=== PATIENT | female | born 1950 | race Caucasian/White ===

== ENCOUNTER 2018-12-20 14:32 | Inpatient (IN) | payer MEDICARE, MEDICAID ==
--- NOTE | 2018-12-20 16:10 | EDM.PDOC ---
ED HPI GENERAL MEDICAL PROBLEM - General Chief Complaint: Respiratory Problem Stated Complaint: SOB Bilateral Chest Pain Score (Numeric/FACES): 10 - Related Data Allergies Allergy/AdvReac Type Severity Reaction Status Date / Time No Known Allergies Allergy Verified 12/20/18 14:44 Home Meds: Home Meds ALPRAZolam [Alprazolam ODT] 0.5 mg PO Q8H PRN 12/20/18 [History] Albuterol Sulfate [Proair Hfa] 2 puff INH Q4H PRN 12/20/18 [History] Fluticasone/Salmeterol [Advair 250-50] 2 puff INH BID 12/20/18 [History] Hydrocodone/Acetaminophen [[place] 5-325 Tablet] 1 tab PO Q6H PRN 12/20/18 [ History] Ondansetron [Zofran] 8 mg PO Q6HR PRN 12/20/18 [History] Prochlorperazine [Compazine] 10 mg PO DAILY PRN 12/20/18 [History] Simvastatin [Zocor] 40 mg PO BEDTIME 12/20/18 [History] Sulfamethoxazole/Trimethoprim [Bactrim 400-80 MG] 1 tab PO BID 12/20/18 [History ] rOPINIRole [Requip] 1 mg PO DAILY 12/20/18 [History] rOPINIRole [Requip] 2 mg PO BEDTIME 12/20/18 [History] traMADol [Ultram] 50 mg PO DAILY PRN 12/20/18 [History] Course - Vital Signs Last Recorded V/S: Last Vital Signs Temp 96.8 F 12/20/18 14:40 Pulse 118 H 12/20/18 14:40 Resp 19 12/20/18 14:40 BP 119/78 12/20/18 14:40 Pulse Ox 94 L 12/20/18 14:40 Departure - Discharge Information Referrals: Evelyne Chapman PA-C [Primary Care Provider] -
[2018-12-20] MEDS ORDERED: Sodium Chloride 0.9% 1,000 ML IV ONE (16:27)
[2018-12-20] MEDS ORDERED: Albuterol 0.083% 2.5 MG/3 ML Neb Soln NEB ONE (16:27)
[2018-12-20] MEDS ORDERED: HYDROmorphone 0.5 MG/0.5 ML Syringe IVPUSH ONE (16:27)
--- NOTE | 2018-12-20 16:58 | EDM.PDOC ---
ED HPI GENERAL MEDICAL PROBLEM - General Chief Complaint: Respiratory Problem Stated Complaint: SOB Time Seen by Provider: 12/20/18 15:51 Source of Information: Reports: Patient History Limitations: Reports: No Limitations - History of Present Illness INITIAL COMMENTS - FREE TEXT/NARRATIVE: Patient is a 68-year-old female who presents ED complaining of right-sided chest pain with shortness of breath and cough. This started approximately one week ago and has progressively gotten worse. She's had increasing shortness of breath since onset with productive cough clear phlegm and short of breath laying flat. Patient has a history of lung cancer and had a left lung completely resected. She has a spot that has shown up on PET scan on the right lung and she's been undergoing radiation therapy and also chemotherapy. They had to stop the chemotherapy because her blood work showed that she was severely neutropenic. They continued with the radiation therapy to which they stopped 1 week ago. She completed a 7-1/2 week program. She was diagnosed with lung infection by Dr. Mohr and placed on bactrim recently and has completed 6/8 day course. She is denies any increased swelling to her lower extremities. No pain noted to the posterior aspect of the legs. She has no history of DVT or PE. Of note no chest x-ray was obtained by Dr. Mohr with diagnosis of lung infection. There has been no documented fever. She denies any hemoptysis. No substernal chest discomfort. No abdominal pain. No nausea or vomiting. No dysuria. No increase swelling to lower extremities. No rash present. No recent fall or activity that may have caused the pain. Bilateral Chest Pain Score (Numeric/FACES): 10 - Related Data Allergies Allergy/AdvReac Type Severity Reaction Status Date / Time No Known Allergies Allergy Verified 12/20/18 14:44 Home Meds: Home Meds ALPRAZolam [Alprazolam ODT] 0.5 mg PO Q8H PRN 12/20/18 [History] Albuterol Sulfate [Proair Hfa] 2 puff INH Q4H PRN 12/20/18 [History] Fluticasone/Salmeterol [Advair 250-50] 2 puff INH BID 12/20/18 [History] Hydrocodone/Acetaminophen [Reva 5-325 Tablet] 1 tab PO Q6H PRN 12/20/18 [ History] Ondansetron [Zofran] 8 mg PO Q6HR PRN 12/20/18 [History] Prochlorperazine [Compazine] 10 mg PO DAILY PRN 12/20/18 [History] Simvastatin [Zocor] 40 mg PO BEDTIME 12/20/18 [History] Sulfamethoxazole/Trimethoprim [Bactrim 400-80 MG] 1 tab PO BID 12/20/18 [History ] rOPINIRole [Requip] 1 mg PO DAILY 12/20/18 [History] rOPINIRole [Requip] 2 mg PO BEDTIME 12/20/18 [History] traMADol [Ultram] 50 mg PO DAILY PRN 12/20/18 [History] ED ROS GENERAL - Review of Systems Review Of Systems: ROS reveals no pertinent complaints other than HPI. ED EXAM, GENERAL - Physical Exam Exam: See Below Exam Limited By: No Limitations General Appearance: Alert, WD/WN, No Apparent Distress Eye Exam: Bilateral Eye: Normal Inspection Ears: Hearing Grossly Normal Nose: Normal Inspection Throat/Mouth: Normal Voice, No Airway Compromise Head: Atraumatic, Normocephalic Neck: Normal Inspection, Supple Respiratory/Chest: No Respiratory Distress, No Accessory Muscle Use, Chest Non- Tender, Decreased Breath Sounds (Left lung field. Vocalized lung sounds on the left diminished since patient has resected lung.), Rhonchi (Right lung field with intermittent expiratory wheezing), Wheezing. No: Accessory Muscle Use Cardiovascular: Normal Peripheral Pulses, Tachycardia, Extra Beats Peripheral Pulses: 2+: Radial (L), Radial (R) GI/Abdominal: Normal Bowel Sounds, Soft, Non-Tender, No Organomegaly, No Distention Back Exam: Normal Inspection Extremities: Normal Inspection, Normal Range of Motion, Non-Tender, No Pedal Edema Neurological: Alert, Oriented, CN II-XII Intact, Normal Cognition, No Motor/ Sensory Deficits Psychiatric: Normal Affect, Normal Mood Skin Exam: Warm, Dry, Intact, Normal Color, No Rash Course - Vital Signs Last Recorded V/S: Last Vital Signs Temp 96.8 F 12/20/18 14:40 Pulse 118 H 12/20/18 14:40 Resp 19 12/20/18 14:40 BP 119/78 12/20/18 14:40 Pulse Ox 97 12/20/18 16:46 - Orders/Labs/Meds Orders: Active Orders 24 hr Category Date Time Status Patient Status [ADT] Routine ADT 12/20/18 22:01 Active EKG Documentation Completion [RC] STAT Care 12/20/18 16:27 Active Peripheral IV Care [RC] . DIRECTED Care 12/20/18 16:27 Active RT Aerosol Therapy [RC] ASDIRECTED Care 12/20/18 16:27 Active Chest 2V [CR] Stat Exams 12/20/18 16:27 Taken CULTURE BLOOD [BC] Stat Lab 12/20/18 17:12 Received CULTURE BLOOD [BC] Stat Lab 12/20/18 17:41 Received MYCOPLASMA PNEUMONIAE, IGG AB [REF] Stat Lab 12/20/18 16:43 Received STREP PNEUMONIAE ANTIGEN [MREF] Stat Lab 12/20/18 18:35 Received Sodium Chloride 0.9% [Saline Flush] Med 12/20/18 16:27 Active 10 ml FLUSH ASDIRECTED PRN rOPINIRole [Requip] Med 12/21/18 21:30 Once 1 mg PO ONETIME ONE Blood Culture x2 Reflex Set [OM.PC] Stat Oth 12/20/18 16:30 Ordered Peripheral IV Insertion Adult [OM.PC] Routine Oth 12/20/18 16:27 Ordered Medication Orders Acetaminophen (Tylenol) 650 mg PO Q4H PRN PRN Reason: Pain (Mild 1-3)/fever Hydrocodone Bitart/Acetaminophen (Reva 325-5 Mg) 1 tab PO Q6H PRN PRN Reason: Pain Albuterol (Proventil Hfa) 0 gm INH Q4H PRN PRN Reason: sob Albuterol/Ipratropium (Duoneb 3.0-0.5 Mg/3 Ml) 3 ml NEB Q4H PRN PRN Reason: Shortness Of Breath/wheezing Alprazolam (Xanax) 0.5 mg PO Q8H PRN PRN Reason: Anxiety Bisacodyl (Dulcolax) 5 mg PO DAILY PRN PRN Reason: Constipation Docusate Sodium (Colace) 100 mg PO BID PRN PRN Reason: Constipation Hydralazine HCl (Apresoline) 20 mg IVPUSH Q4H PRN PRN Reason: Hypertension Hydromorphone HCl (Dilaudid) 0.25 mg IVPUSH Q2H PRN PRN Reason: Pain (severe 7-10) Meropenem 1 gm/ Sodium (Chloride) 100 mls @ 200 mls/hr IV Q8H [facility] Vancomycin HCl 500 mg/ Sodium (Chloride) 250 mls @ 166.667 mls/hr IV Q12H [facility] Promethazine HCl 6.25 mg/ (Sodium Chloride) 50.25 mls @ 100 mls/hr IV Q6H PRN PRN Reason: Nausea/Vomiting Sodium Chloride (Normal Saline) 1,000 mls @ 100 mls/hr IV ASDIRECTED [facility] Lorazepam (Ativan) 1 mg IV Q6H PRN PRN Reason: Anxiety Metoprolol Tartrate (Lopressor) 5 mg IVPUSH Q4H PRN PRN Reason: Tachycardia Mometasone Furoate/Formoterol Fumar (Dulera 200-5 Mcg) 2 puff IH BIDRT [facility] Non-Formulary Medication (Ropinirole) 1 mg PO DAILY [facility] Ondansetron HCl (Zofran Odt) 8 mg PO Q6HR PRN PRN Reason: Nausea Ondansetron HCl (Zofran) 4 mg IV Q6H PRN PRN Reason: Nausea/Vomiting Pantoprazole Sodium (Protonix Iv) 40 mg IV Q12HR [facility] Polyethylene Glycol (Miralax) 17 gm PO DAILY PRN PRN Reason: Constipation Prochlorperazine Maleate (Compazine) 10 mg PO DAILY PRN PRN Reason: Nausea Ropinirole HCl (Requip) 1 mg PO ONETIME ONE Stop: 12/21/18 21:31 Last Admin: 12/20/18 21:37 Dose: 1 mg Ropinirole HCl (Requip) 2 mg PO BEDTIME [facility] Senna/Docusate Sodium (Senna Plus) 1 tab PO BID PRN PRN Reason: Constipation Simvastatin (Zocor) 40 mg PO BEDTIME [facility] Sodium Chloride (Saline Flush) 10 ml FLUSH ASDIRECTED PRN PRN Reason: Keep Vein Open Last Admin: 12/20/18 20:09 Dose: 10 ml Admin: 12/20/18 17:03 Dose: 10 ml Temazepam (Restoril) 15 mg PO BEDTIME PRN PRN Reason: Sleep Tramadol HCl (Ultram) 50 mg PO DAILY PRN PRN Reason: Pain Vancomycin HCl (Pharmacy To Dose - Vancomycin) 1 dose .XX ASDIRECTED [facility] Labs: Laboratory Tests 12/20/18 12/20/18 12/20/18 Range/Units 16:43 16:43 16:43 WBC 0.75 L* (3.98-10.04) K/mm3 RBC 2.89 L (3.98-5.22) M/mm3 Hgb 8.7 L (11.2-15.7) gm/dl Hct 27.1 L (34.1-44.9) % MCV 93.8 (79.4-94.8) fl MCH 30.1 (25.6-32.2) pg MCHC 32.1 L (32.2-35.5) g/dl RDW Std Deviation 70.3 H (36.4-46.3) fL Plt Count 139 L (182-369) K/mm3 MPV 10.3 (9.4-12.3) fl Neutrophils % (Manual) 34 L (40-60) % Band Neutrophils % 0 (0-10) % Lymphocytes % (Manual) 46 H (20-40) % Atypical Lymphs % 0 % Monocytes % (Manual) 18 H (2-10) % Eosinophils % (Manual) 2 (0.7-5.8) % Basophils % (Manual) 0 L (0.1-1.2) Toxic Granulation Few Platelet Estimate Decreased Plt Morphology Comment See note Hypochromasia Few Basophilic Stippling Occasional Anisocytosis 2+ moder Macrocytosis 1+ slight Ovalocytes 1+ slight RBC Morph Comment Not Reportable PT (9.7-12.0) SECONDS INR Sodium 134 L (136-145) mEq/L Potassium 4.1 (3.5-5.1) mEq/L Chloride 100 (98-107) mEq/L Carbon Dioxide 24 (21-32) mEq/L Anion Gap 14.1 (5-15) BUN 15 (7-18) mg/dL Creatinine 1.0 (0.55-1.02) mg/dL Est Cr Clr Drug Dosing 49.00 mL/min Estimated GFR (MDRD) 55 (>60) mL/min BUN/Creatinine Ratio 15.0 (14-18) Glucose 90 (80-115) mg/dL Lactic Acid (0.4-2.0) mmol/L Calcium 9.5 (8.5-10.1) mg/dL Total Bilirubin 0.5 (0.2-1.0) mg/dL AST 12 L (15-37) U/L ALT 15 (14-59) U/L Alkaline Phosphatase 132 H (46-116) U/L Troponin I < 0.017 (0.00-0.056) ng/mL C-Reactive Protein 1.4 H* (<1.0) mg/dL NT-Pro-B Natriuret Pep 116 (0-125) pg/mL Total Protein 7.8 (6.4-8.2) g/dl Albumin 4.3 (3.4-5.0) g/dl Globulin 3.5 gm/dL Albumin/Globulin Ratio 1.2 (1-2) Urine Color (Yellow) Urine Appearance (Clear) Urine pH (5.0-8.0) Ur Specific [place] (1.005-1.030) Urine Protein (Negative) Urine Glucose (UA) (Negative) Urine Ketones (Negative) Urine Occult Blood (Negative) Urine Nitrite (Negative) Urine Bilirubin (Negative) Urine Urobilinogen (0.2-1.0) Ur Leukocyte Esterase (Negative) Urine RBC (0-5) /hpf Urine WBC (0-5) /hpf Ur Squamous Epith Cells (0-5) /hpf Urine Bacteria (FEW) /hpf Urine Mucus (FEW) /hpf 12/20/18 12/20/18 12/20/18 Range/Units 16:43 17:12 18:35 WBC (3.98-10.04) K/mm3 RBC (3.98-5.22) M/mm3 Hgb (11.2-15.7) gm/dl Hct (34.1-44.9) % MCV (79.4-94.8) fl MCH (25.6-32.2) pg MCHC (32.2-35.5) g/dl RDW Std Deviation (36.4-46.3) fL Plt Count (182-369) K/mm3 MPV (9.4-12.3) fl Neutrophils % (Manual) (40-60) % Band Neutrophils % (0-10) % Lymphocytes % (Manual) (20-40) % Atypical Lymphs % % Monocytes % (Manual) (2-10) % Eosinophils % (Manual) (0.7-5.8) % Basophils % (Manual) (0.1-1.2) Toxic Granulation Platelet Estimate Plt Morphology Comment Hypochromasia Basophilic Stippling Anisocytosis Macrocytosis Ovalocytes RBC Morph Comment PT 10.9 (9.7-12.0) SECONDS INR 1.00 Sodium (136-145) mEq/L Potassium (3.5-5.1) mEq/L Chloride (98-107) mEq/L Carbon Dioxide (21-32) mEq/L Anion Gap (5-15) BUN (7-18) mg/dL Creatinine (0.55-1.02) mg/dL Est Cr Clr Drug Dosing mL/min Estimated GFR (MDRD) (>60) mL/min BUN/Creatinine Ratio (14-18) Glucose (80-115) mg/dL Lactic Acid 0.7 (0.4-2.0) mmol/L Calcium (8.5-10.1) mg/dL Total Bilirubin (0.2-1.0) mg/dL AST (15-37) U/L ALT (14-59) U/L Alkaline Phosphatase (46-116) U/L Troponin I (0.00-0.056) ng/mL C-Reactive Protein (<1.0) mg/dL NT-Pro-B Natriuret Pep (0-125) pg/mL Total Protein (6.4-8.2) g/dl Albumin (3.4-5.0) g/dl Globulin gm/dL Albumin/Globulin Ratio (1-2) Urine Color Yellow (Yellow) Urine Appearance Slt cloudy H (Clear) Urine pH 5.5 (5.0-8.0) Ur Specific [place] > or = 1.030 (1.005-1.030) Urine Protein 2+ H (Negative) Urine Glucose (UA) Negative (Negative) Urine Ketones 3+ H (Negative) Urine Occult Blood 1+ H (Negative) Urine Nitrite Negative (Negative) Urine Bilirubin 2+ H (Negative) Urine Urobilinogen 1.0 (0.2-1.0) Ur Leukocyte Esterase Negative (Negative) Urine RBC 0-5 (0-5) /hpf Urine WBC 0-5 (0-5) /hpf Ur Squamous Epith Cells 10-20 H (0-5) /hpf Urine Bacteria Moderate H (FEW) /hpf Urine Mucus Few (FEW) /hpf Meds: Medications Generic Name Dose Route Start Last Admin Trade Name Freq PRN Reason Stop Dose Admin Acetaminophen 650 mg 12/20/18 22:26 Tylenol PO Q4H PRN Pain (Mild 1-3)/fever Hydrocodone Bitart/Acetaminophen 1 tab 12/20/18 22:41 Reva 325-5 Mg PO Q6H PRN Pain Albuterol 0 gm 12/20/18 22:24 Proventil Hfa INH Q4H PRN sob Albuterol/Ipratropium 3 ml 12/20/18 22:26 Duoneb 3.0-0.5 Mg/3 Ml NEB Q4H PRN Shortness Of Breath/wheezing Alprazolam 0.5 mg 12/20/18 22:24 Xanax PO Q8H PRN Anxiety Bisacodyl 5 mg 12/20/18 22:26 Dulcolax PO DAILY PRN Constipation Docusate Sodium 100 mg 12/20/18 22:26 Colace PO BID PRN Constipation Hydralazine HCl 20 mg 12/20/18 22:30 Apresoline IVPUSH Q4H PRN Hypertension Hydromorphone HCl 0.25 mg 12/20/18 22:26 Dilaudid IVPUSH Q2H PRN Pain (severe 7-10) Meropenem 1 gm/ Sodium 100 mls @ 200 mls/hr 12/20/18 23:00 Chloride IV Q8H [facility] Vancomycin HCl 500 mg/ Sodium 250 mls @ 166.667 mls/hr 12/20/18 22:30 Chloride IV Q12H [facility] Promethazine HCl 6.25 mg/ 50.25 mls @ 100 mls/hr 12/20/18 22:26 Sodium Chloride IV Q6H PRN Nausea/Vomiting Sodium Chloride 1,000 mls @ 100 mls/hr 12/20/18 22:30 Normal Saline IV ASDIRECTED [facility] Lorazepam 1 mg 12/20/18 22:26 Ativan IV Q6H PRN Anxiety Metoprolol Tartrate 5 mg 12/20/18 22:30 Lopressor IVPUSH Q4H PRN Tachycardia Mometasone Furoate/Formoterol Fumar 2 puff 12/20/18 22:30 Dulera 200-5 Mcg IH BIDRT [facility] Non-Formulary Medication 1 mg 12/21/18 09:00 Ropinirole PO DAILY [facility] Ondansetron HCl 8 mg 12/20/18 22:24 Zofran Odt PO Q6HR PRN Nausea Ondansetron HCl 4 mg 12/20/18 22:26 Zofran IV Q6H PRN Nausea/Vomiting Pantoprazole Sodium 40 mg 12/21/18 09:00 Protonix Iv IV Q12HR [facility] Polyethylene Glycol 17 gm 12/20/18 22:26 Miralax PO DAILY PRN Constipation Prochlorperazine Maleate 10 mg 12/20/18 22:24 Compazine PO DAILY PRN Nausea Ropinirole HCl 1 mg 12/21/18 21:30 12/20/18 21:37 Requip PO 12/21/18 21:31 1 mg ONETIME ONE Administration Ropinirole HCl 2 mg 12/21/18 21:00 Requip PO BEDTIME [facility] Senna/Docusate Sodium 1 tab 12/20/18 22:26 Senna Plus PO BID PRN Constipation Simvastatin 40 mg 12/21/18 21:00 Zocor PO BEDTIME [facility] Sodium Chloride 10 ml 12/20/18 16:27 12/20/18 20:09 Saline Flush FLUSH 10 ml ASDIRECTED PRN Administration Keep Vein Open Temazepam 15 mg 12/20/18 22:26 Restoril PO BEDTIME PRN Sleep Tramadol HCl 50 mg 12/20/18 22:24 Ultram PO DAILY PRN Pain Vancomycin HCl 1 dose 12/20/18 22:30 Pharmacy To Dose - Vancomycin .XX ASDIRECTED [facility] Discontinued Medications Generic Name Dose Route Start Last Admin Trade Name Freq PRN Reason Stop Dose Admin Hydrocodone Bitart/Acetaminophen 1 tab 12/20/18 21:29 12/20/18 21:37 Reva 325-5 Mg PO 12/20/18 21:30 1 tab ONETIME ONE Administration Albuterol 2.5 mg 12/20/18 16:27 12/20/18 16:46 Proventil Neb Soln NEB 12/20/18 16:28 2.5 mg ONETIME ONE Administration Hydromorphone HCl 0.25 mg 12/20/18 16:27 12/20/18 17:02 Dilaudid IVPUSH 12/20/18 16:28 0.25 mg ONETIME ONE Administration Sodium Chloride 1,000 mls @ 250 mls/hr 12/20/18 16:27 12/20/18 17:02 Normal Saline IV 12/20/18 20:26 250 mls/hr ONETIME ONE Administration Sodium Chloride 100 mls @ 4 mls/sec 12/20/18 19:27 12/20/18 20:09 Normal Saline IV 12/20/18 19:28 4 mls/sec ONETIME ONE Administration Levofloxacin/Dextrose 750 mg/ 150 mls @ 100 mls/hr 12/20/18 20:27 12/20/18 21 :02 Premix IV 12/20/18 21:56 100 mls/hr ONETIME ONE Administration Iopamidol 100 ml 12/20/18 19:27 12/20/18 20:09 Isovue-370 (76%) IVPUSH 12/20/18 19:28 100 ml ONETIME ONE Administration Ropinirole HCl 1 mg 12/20/18 19:04 12/20/18 19:15 Requip PO 12/20/18 19:05 1 mg ONETIME ONE Administration - Re-Assessments/Exams Free Text/Narrative Re-Assessment/Exam: IV established with normal saline and Dilaudid 0.25 mg IVP. I will also ordered albuterol neb treatment 2.5 mg 1 time. Initial labs and studies include: CBC, chem 14, CRP, blood cultures 2, lactic acid, inr, mycoplasma, strep pneumonia,pro bnp, troponin, and ua. Mycoplasma and strep pneumonia ordered. EKG ordered as well. EKG: Sinus tachycardia with T-wave inversion in aVL. CXR: Left-sided lobectomy with no concerns for increased pulmonary vascular sedation and/or pneumonia to the right lung simpson. Labs reviewed: White blood cell count 0.75, hemoglobin 8.7, the count 139, neutrophil percentage 34, bands 0, lymphocyte percentage is 46, monocyte percentage is 18, sodium 134, potassium 4.1, AG 14.1, creatinine 1.0, glucose 90 , lactic acid 0.7, LFTs within normal limits, troponin normal, CRP 1.4, and BNP 116. Patient placed on precautions due to severe neutropenia. Ordered CTA of the chest to rule out PE. . 12/20/18 19:47 Patient has just been taken back to CT suite. 12/20/18 20:32 CT angio the chest impression: Previous left pneumonectomy. No findings of pulmonary embolus. Patchy increased density within the right upper lung most likely representing mild area pneumonia. Other findings which are nonacute as described above. [id number] Discussed patient with Dr. Cool and he has agreed to admit the patient if she want to. I have spoken with the patient and she wishes to be admitted. Ordered Levaquin 750 mg IV. Departure - Departure Time of Disposition: 20:33 Disposition: Admitted As Inpatient 64 Condition: Good Clinical Impression: Pneumonia Qualifiers: Pneumonia type: due to unspecified organism Laterality: right Lung location: upper lobe of lung Qualified Code(s): J18.1 - Lobar pneumonia, unspecified organism - Discharge Information - My Orders Last 24 Hours: My Active Orders 12/20/18 16:27 EKG Documentation Completion [RC] STAT Peripheral IV Care [RC] . DIRECTED RT Aerosol Therapy [RC] ASDIRECTED Chest 2V [CR] Stat Sodium Chloride 0.9% [Saline Flush] 10 ml FLUSH ASDIRECTED PRN Peripheral IV Insertion Adult [OM.PC] Routine 12/20/18 16:30 Blood Culture x2 Reflex Set [OM.PC] Stat 12/20/18 16:43 MYCOPLASMA PNEUMONIAE, IGG AB [REF] Stat 12/20/18 17:12 CULTURE BLOOD [BC] Stat 12/20/18 17:41 CULTURE BLOOD [BC] Stat 12/20/18 18:35 STREP PNEUMONIAE ANTIGEN [MREF] Stat 12/20/18 22:01 Patient Status [ADT] Routine 12/21/18 21:30 rOPINIRole [Requip] 1 mg PO ONETIME ONE - Assessment/Plan Last 24 Hours: My Active Orders 12/20/18 16:27 EKG Documentation Completion [RC] STAT Peripheral IV Care [RC] . DIRECTED RT Aerosol Therapy [RC] ASDIRECTED Chest 2V [CR] Stat Sodium Chloride 0.9% [Saline Flush] 10 ml FLUSH ASDIRECTED PRN Peripheral IV Insertion Adult [OM.PC] Routine 12/20/18 16:30 Blood Culture x2 Reflex Set [OM.PC] Stat 12/20/18 16:43 MYCOPLASMA PNEUMONIAE, IGG AB [REF] Stat 12/20/18 17:12 CULTURE BLOOD [BC] Stat 12/20/18 17:41 CULTURE BLOOD [BC] Stat 12/20/18 18:35 STREP PNEUMONIAE ANTIGEN [MREF] Stat 12/20/18 22:01 Patient Status [ADT] Routine 12/21/18 21:30 rOPINIRole [Requip] 1 mg PO ONETIME ONE
[2018-12-20] MEDS: Sodium Chloride 0.9% 10 ML Syringe FLUSH PRN ×2 (17:03→20:09)
[2018-12-20] MEDS ORDERED: rOPINIRole 1 MG Tab PO ONE (19:04)
[2018-12-20] MEDS ORDERED: Iopamidol 755 Mg/ML 100 ML Bottle IVPUSH ONE (19:27)
[2018-12-20] MEDS ORDERED: Sodium Chloride 0.9% 100 ML IV ONE (19:27)
--- NOTE | 2018-12-20 20:24 | CT ---
CT chest Technique: Multiple axial sections through the chest were obtained. Intravenous contrast was utilized. Study has been performed as a pulmonary angiogram protocol. Comparison: No prior chest imaging is available. Findings: Pulmonary arteries are well opacified. No filling defects are seen to indicate pulmonary embolism. Previous left-sided pneumonectomy is noted. No discrete mediastinal or hilar adenopathy is seen. Heart is not enlarged. No pericardial effusion is seen. Small area of focal fat is seen within the right lung base most likely representing focal fatty eventration of the right hemidiaphragm. Lung window setting shows slight increased density within the right upper lung possibly due to early area of pneumonia. Right lung is otherwise clear. Visualized portions of the upper abdominal structures shows gallstones. Bone window settings were reviewed which shows mild diffuse degenerative change within the spine. Several old healed left-sided rib fractures are seen. Single old healed right-sided rib fracture is noted. Impression: 1. Previous left pneumonectomy. 2. No findings of pulmonary embolism. 3. Patchy increased density within the right upper lung most likely representing mild area of pneumonia. 4. Other findings which are nonacute as described above. Diagnostic code #3
[2018-12-20] MEDS ORDERED: Levofloxacin/Dextrose 5%-Water 750 MG in Premix Bag 1 BAG IV ONE (20:27)
[2018-12-20] MEDS ORDERED: Acetaminophen/HYDROcodone 325-5 MG Tab PO ONE (21:29)
[2018-12-20] MEDS ORDERED: Prochlorperazine 5 MG Tab PO PRN (22:24)
[2018-12-20] MEDS ORDERED: ALPRAZolam 0.5 MG Tab PO PRN (22:24)
[2018-12-20] MEDS ORDERED: traMADol 50 MG Tab PO PRN (22:24)
[2018-12-20] MEDS ORDERED: Albuterol 6.7 GM Inhaler INH PRN (22:24)
[2018-12-20] MEDS ORDERED: Ondansetron 4 MG Tab.DIS PO PRN (22:24)
[2018-12-20] MEDS ORDERED: Acetaminophen 325 MG Tab PO PRN (22:26)
[2018-12-20] MEDS ORDERED: Polyethylene Glycol 3350 Powder 17 GM Packet PO PRN (22:26)
[2018-12-20] MEDS ORDERED: LORazepam 2 MG/ML SDV IV PRN (22:26)
[2018-12-20] MEDS ORDERED: Albuterol/Ipratropium 3.0-0.5 MG/3 ML Neb Soln NEB PRN (22:26)
[2018-12-20] MEDS ORDERED: Temazepam 15 MG Cap PO PRN (22:26)
[2018-12-20] MEDS ORDERED: Docusate Sodium 100 MG Cap PO PRN (22:26)
[2018-12-20] MEDS ORDERED: Promethazine 6.25 MG in Sodium Chloride 0.9% 50 ML IV PRN (22:26)
[2018-12-20] MEDS ORDERED: HYDROmorphone 0.5 MG/0.5 ML Syringe IVPUSH PRN (22:26)
[2018-12-20] MEDS ORDERED: Metoprolol Tartrate 5 MG/5 ML SDV IVPUSH PRN (22:30)
[2018-12-20] MEDS ORDERED: hydrALAZINE 20 MG/ML SDV IVPUSH PRN (22:30)
[2018-12-20] MEDS ORDERED: Meropenem 1 GM in Sodium Chloride 0.9% 100 ML IV SCH (23:00)
[2018-12-20] MEDS: Formoterol/Mometasone 200-5 MCG 8.8 GM Inhaler IH SCH (23:19)
[2018-12-20] MEDS: Sodium Chloride 0.9% 1,000 ML IV SCH (23:42)
[2018-12-20] MEDS: MEROPENEM IV SCH (23:43)
[2018-12-21] MEDS ORDERED: MEROPENEM IV SCH
[2018-12-21] MEDS ORDERED: rOPINIRole 1 MG Tab PO ONE ×2 (00:30→21:30)
[2018-12-21] MEDS: Ondansetron 4 MG/2 ML SDV IV PRN ×2 (00:40→10:06)
[2018-12-21] MEDS: rOPINIRole 1 MG Tab PO SCH ×6 (04:25→22:09)
[2018-12-21] MEDS: Formoterol/Mometasone 200-5 MCG 8.8 GM Inhaler IH SCH ×2 (05:47→20:23)
[2018-12-21] MEDS ORDERED: Magnesium Sulfate/Water 4 GM in Premix Bag 1 BAG IV ONE (07:35)
[2018-12-21] MEDS: MEROPENEM IV SCH (07:58)
--- NOTE | 2018-12-21 08:09 | PCM.HP.2 ---
H&P History of Present Illness - General Date of Service: 12/21/18 Admit Problem/Dx: Admission Diagnosis/Problem Admission Diagnosis/Problem Pneumonia Source of Information: Patient, Old Records, Provider, RN Notes Reviewed History Limitations: Reports: No Limitations - History of Present Illness Initial Comments - Free Text/Narative: This is a 68 yo elderly white female with past medical hx/o LD, Chronic Pain, RLS, Anxiety/Depression, Lung CA S/p Resection and Obesity Class I who presented to ED with complaints of worsening right sided chest pain associated with shortness of breath and wet clear cough that started about a week ago. She carries a hx/o Lung caner s/p left lung resection. She completed her chemotherapy about a month and just recently done with her 8 weeks treatment of radiation therapy. She was initially diagnosed with pneumonia by her cancer doctor in [place]. She was put on oral Bactrim but this did not seem to improve her symptoms. Her initial work up in ED showed a CBC remarkable for WBC of 0.75, RBC of 2.89, Hgb of 8.7, Hct of 27.1, MCHC of 32.1, RDW of 70.3, Platelet of 139, Neutrophils of 34%, Lymphocytes of 46% and Monocytes of 18%. Her Chemistry was significant for AST of 12, Alk Phos of 132, and CRP of 1.4. Her UA was not suggestive of UTI. However her Chest CT scan report read as no findings of PE, previous left pneumectomy, and patchy increased density within the right upper lung. Patient was admitted overnight for CAP vs Post Obstructive Pneumonia. Bilateral Chest Pain Score (Numeric/FACES): 10 Right Chest Pain Score (Numeric/FACES): 7 - Related Data Allergies/Adverse Reactions: Allergies Allergy/AdvReac Type Severity Reaction Status Date / Time No Known Allergies Allergy Verified 12/20/18 14:44 Home Medications: Home Meds ALPRAZolam [Alprazolam ODT] 0.5 mg PO DAILY PRN 12/20/18 [History] Albuterol Sulfate [Proair Hfa] 2 puff INH Q4H PRN 12/20/18 [History] Fluticasone/Salmeterol [Advair 250-50] 2 puff INH BID 12/20/18 [History] Hydrocodone/Acetaminophen [[place] 5-325 Tablet] 1 - 2 tab PO Q6H PRN 12/20/18 [ History] Ondansetron [Zofran] 8 mg PO TID PRN 12/20/18 [History] Prochlorperazine [Compazine] 10 mg PO TID PRN 12/20/18 [History] Simvastatin [Zocor] 40 mg PO BEDTIME 12/20/18 [History] Sulfamethoxazole/Trimethoprim [Bactrim 400-80 MG] 1 tab PO BID 12/20/18 [History ] rOPINIRole [Requip] 1 mg PO TID 12/20/18 [History] rOPINIRole [Requip] 3 mg PO BEDTIME 12/20/18 [History] traMADol [Ultram] 50 mg PO DAILY PRN 12/20/18 [History] Past Medical History HEENT History: Reports: Impaired Vision Cardiovascular History: Reports: High Cholesterol Respiratory History: Reports: Other (See Below) Other Respiratory History: lung [place] [employer] History: Reports: Ectopic Other OB/BYN History: Hysrectomy Psychiatric History: Reports: Depression Endocrine/Metabolic History: Reports: Obesity/BMI 30+ Hematologic History: Reports: Anemia Oncologic (Cancer) History: Reports: Lung - Past Surgical History Oncologic Surgical History: Reports: Lobectomy, Other (See Below) Other Oncologic Surgeries/Procedures: Lobectomy of left lung Social & Family History - Family History Family Medical History: Noncontributory - Tobacco Use Smoking Status *Q: Former Smoker Used Tobacco, but Quit: Yes Month/Year Tobacco Last Used: 2018 Tobacco Use Comment: pt uses "clean cig" ecigarette - Caffeine Use Caffeine Use: Reports: Coffee, Soda - Recreational Drug Use Recreational Drug Type: Reports: Marijuana/Hashish Other Recreational Drug Type: "twice a week" Recreational Drug Last Use: last week H&P Review of Systems - Review of Systems: Review Of Systems: See Below General: Reports: Malaise, Weakness, Fatigue. Denies: Fever, Chills HEENT: Reports: No Symptoms Pulmonary: Reports: Shortness of Breath, Cough, Sputum (clear), Other (rib pain) . Denies: Wheezing, Pleuritic Chest Pain Cardiovascular: Denies: Chest Pain Gastrointestinal: Reports: Constipation, Decreased Appetite, Other (dry heaves) . Denies: Abdominal Pain, Vomiting Genitourinary: Reports: No Symptoms Musculoskeletal: Reports: Muscle Pain Skin: Denies: Cyanosis, Mottled, Diaphoresis, Bruising, Erythema, Wound Psychiatric: Denies: Depression, Mood Lability, Anxiety, Agitation, Cravings, Hallucinations, Suicidal Ideation, Homicidal Ideation Neurological: Reports: Weakness, Gait Disturbance, Other (restless leg on both LE). Denies: Confusion Hematologic/Lymphatic: Reports: Anemia Immunologic: Reports: No Symptoms Exam - Exam Exam: See Below - Vital Signs Vital Signs: Last Vital Signs Temp 36.6 C 12/21/18 03:41 Pulse 106 H 12/21/18 03:41 Resp 18 12/21/18 03:41 BP 117/85 12/21/18 03:41 Pulse Ox 99 12/21/18 05:48 Weight: 93.621 kg - Exam Quality Assessment: Restraints General: Alert, Oriented, Cooperative HEENT: Conjunctiva Clear, EACs Clear, EOMI, Hearing Intact, Mucosa Moist & [place] , Nares Patent, Normal Nasal Septum, Posterior Pharynx Clear, Pupils Equal, Pupils Reactive Neck: Supple, Trachea Midline Lungs: Clear to Auscultation, Normal Respiratory Effort Cardiovascular: Regular Rate, Regular Rhythm GI/Abdominal Exam: Normal Bowel Sounds, Soft, Non-Tender, No Organomegaly, No Distention, No Abnormal Bruit, No Mass (Female) Exam: Deferred Rectal (Female) Exam: Deferred Back Exam: Normal Inspection, Decreased Range of Motion Extremities: Normal Inspection, Normal Range of Motion, Non-Tender, No Pedal Edema, Normal Capillary Refill Peripheral Pulses: 2+: Posterior Tibial (L), Posterior Tibial (R), Dorsalis Pedis (L), Dorsalis Pedis (R) Skin: Warm, Dry, Intact Neuro Extensive - Mental Status: Oriented x3, Normal Cognition, Memory Intact Neuro Extensive - Motor, Sensory, Reflexes: CN II-XII Intact, Normal Gait Psychiatric: Alert, Normal Affect - Patient Data Lab Results Last 24 hrs: Laboratory Results - last 24 hr 12/20/18 12/20/18 12/20/18 Range/Units 16:43 16:43 16:43 WBC 0.75 L* (3.98-10.04) K/mm3 RBC 2.89 L (3.98-5.22) M/mm3 Hgb 8.7 L (11.2-15.7) gm/dl Hct 27.1 L (34.1-44.9) % MCV 93.8 (79.4-94.8) fl MCH 30.1 (25.6-32.2) pg MCHC 32.1 L (32.2-35.5) g/dl RDW Std Deviation 70.3 H (36.4-46.3) fL Plt Count 139 L (182-369) K/mm3 MPV 10.3 (9.4-12.3) fl Neut % (Auto) (34.0-71.1) % Lymph % (Auto) (19.3-51.7) % [place] % (Auto) (4.7-12.5) % Eos % (Auto) (0.7-5.8) Baso % (Auto) (0.1-1.2) % Neut # (Auto) (1.56-6.13) K/mm3 Lymph # (Auto) (1.18-3.74) K/mm3 [place] # (Auto) (0.24-0.36) K/mm3 Eos # (Auto) (0.04-0.36) K/mm3 Baso # (Auto) (0.01-0.08) K/mm3 Neutrophils % (Manual) 34 L (40-60) % Band Neutrophils % 0 (0-10) % Lymphocytes % (Manual) 46 H (20-40) % Atypical Lymphs % 0 % Monocytes % (Manual) 18 H (2-10) % Eosinophils % (Manual) 2 (0.7-5.8) % Basophils % (Manual) 0 L (0.1-1.2) Toxic Granulation Few Platelet Estimate Decreased Plt Morphology Comment See note Hypochromasia Few Basophilic Stippling Occasional Anisocytosis 2+ moder Macrocytosis 1+ slight Ovalocytes 1+ slight RBC Morph Comment Not Reportable PT (9.7-12.0) SECONDS INR Sodium 134 L (136-145) mEq/L Potassium 4.1 (3.5-5.1) mEq/L Chloride 100 (98-107) mEq/L Carbon Dioxide 24 (21-32) mEq/L Anion Gap 14.1 (5-15) BUN 15 (7-18) mg/dL Creatinine 1.0 (0.55-1.02) mg/dL Est Cr Clr Drug Dosing 49.00 mL/min Estimated GFR (MDRD) 55 (>60) mL/min BUN/Creatinine Ratio 15.0 (14-18) Glucose 90 (80-115) mg/dL Lactic Acid (0.4-2.0) mmol/L Calcium 9.5 (8.5-10.1) mg/dL Magnesium (1.8-2.4) mg/dl Total Bilirubin 0.5 (0.2-1.0) mg/dL AST 12 L (15-37) U/L ALT 15 (14-59) U/L Alkaline Phosphatase 132 H (46-116) U/L Troponin I < 0.017 (0.00-0.056) ng/mL C-Reactive Protein 1.4 H* (<1.0) mg/dL NT-Pro-B Natriuret Pep 116 (0-125) pg/mL Total Protein 7.8 (6.4-8.2) g/dl Albumin 4.3 (3.4-5.0) g/dl Globulin 3.5 gm/dL Albumin/Globulin Ratio 1.2 (1-2) Urine Color (Yellow) Urine Appearance (Clear) Urine pH (5.0-8.0) Ur Specific [place] (1.005-1.030) Urine Protein (Negative) Urine Glucose (UA) (Negative) Urine Ketones (Negative) Urine Occult Blood (Negative) Urine Nitrite (Negative) Urine Bilirubin (Negative) Urine Urobilinogen (0.2-1.0) Ur Leukocyte Esterase (Negative) Urine RBC (0-5) /hpf Urine WBC (0-5) /hpf Ur Squamous Epith Cells (0-5) /hpf Urine Bacteria (FEW) /hpf Urine Mucus (FEW) /hpf 12/20/18 12/20/18 12/20/18 Range/Units 16:43 17:12 18:35 WBC (3.98-10.04) K/mm3 RBC (3.98-5.22) M/mm3 Hgb (11.2-15.7) gm/dl Hct (34.1-44.9) % MCV (79.4-94.8) fl MCH (25.6-32.2) pg MCHC (32.2-35.5) g/dl RDW Std Deviation (36.4-46.3) fL Plt Count (182-369) K/mm3 MPV (9.4-12.3) fl Neut % (Auto) (34.0-71.1) % Lymph % (Auto) (19.3-51.7) % [place] % (Auto) (4.7-12.5) % Eos % (Auto) (0.7-5.8) Baso % (Auto) (0.1-1.2) % Neut # (Auto) (1.56-6.13) K/mm3 Lymph # (Auto) (1.18-3.74) K/mm3 [place] # (Auto) (0.24-0.36) K/mm3 Eos # (Auto) (0.04-0.36) K/mm3 Baso # (Auto) (0.01-0.08) K/mm3 Neutrophils % (Manual) (40-60) % Band Neutrophils % (0-10) % Lymphocytes % (Manual) (20-40) % Atypical Lymphs % % Monocytes % (Manual) (2-10) % Eosinophils % (Manual) (0.7-5.8) % Basophils % (Manual) (0.1-1.2) Toxic Granulation Platelet Estimate Plt Morphology Comment Hypochromasia Basophilic Stippling Anisocytosis Macrocytosis Ovalocytes RBC Morph Comment PT 10.9 (9.7-12.0) SECONDS INR 1.00 Sodium (136-145) mEq/L Potassium (3.5-5.1) mEq/L Chloride (98-107) mEq/L Carbon Dioxide (21-32) mEq/L Anion Gap (5-15) BUN (7-18) mg/dL Creatinine (0.55-1.02) mg/dL Est Cr Clr Drug Dosing mL/min Estimated GFR (MDRD) (>60) mL/min BUN/Creatinine Ratio (14-18) Glucose (80-115) mg/dL Lactic Acid 0.7 (0.4-2.0) mmol/L Calcium (8.5-10.1) mg/dL Magnesium (1.8-2.4) mg/dl Total Bilirubin (0.2-1.0) mg/dL AST (15-37) U/L ALT (14-59) U/L Alkaline Phosphatase (46-116) U/L Troponin I (0.00-0.056) ng/mL C-Reactive Protein (<1.0) mg/dL NT-Pro-B Natriuret Pep (0-125) pg/mL Total Protein (6.4-8.2) g/dl Albumin (3.4-5.0) g/dl Globulin gm/dL Albumin/Globulin Ratio (1-2) Urine Color Yellow (Yellow) Urine Appearance Slt cloudy H (Clear) Urine pH 5.5 (5.0-8.0) Ur Specific [place] > or = 1.030 (1.005-1.030) Urine Protein 2+ H (Negative) Urine Glucose (UA) Negative (Negative) Urine Ketones 3+ H (Negative) Urine Occult Blood 1+ H (Negative) Urine Nitrite Negative (Negative) Urine Bilirubin 2+ H (Negative) Urine Urobilinogen 1.0 (0.2-1.0) Ur Leukocyte Esterase Negative (Negative) Urine RBC 0-5 (0-5) /hpf Urine WBC 0-5 (0-5) /hpf Ur Squamous Epith Cells 10-20 H (0-5) /hpf Urine Bacteria Moderate H (FEW) /hpf Urine Mucus Few (FEW) /hpf 12/21/18 12/21/18 Range/Units 05:27 05:27 WBC 0.75 L* (3.98-10.04) K/mm3 RBC 2.51 L (3.98-5.22) M/mm3 Hgb 7.5 L (11.2-15.7) gm/dl Hct 23.8 L (34.1-44.9) % MCV 94.8 (79.4-94.8) fl MCH 29.9 (25.6-32.2) pg MCHC 31.5 L (32.2-35.5) g/dl RDW Std Deviation 71.6 H (36.4-46.3) fL Plt Count 112 L (182-369) K/mm3 MPV 10.2 (9.4-12.3) fl Neut % (Auto) 26.7 L (34.0-71.1) % Lymph % (Auto) 25.3 (19.3-51.7) % [place] % (Auto) 48.0 H (4.7-12.5) % Eos % (Auto) 0 L (0.7-5.8) Baso % (Auto) 0.0 L (0.1-1.2) % Neut # (Auto) 0.20 L (1.56-6.13) K/mm3 Lymph # (Auto) 0.19 L (1.18-3.74) K/mm3 [place] # (Auto) 0.36 (0.24-0.36) K/mm3 Eos # (Auto) 0.00 L (0.04-0.36) K/mm3 Baso # (Auto) 0.00 L (0.01-0.08) K/mm3 Neutrophils % (Manual) (40-60) % Band Neutrophils % (0-10) % Lymphocytes % (Manual) (20-40) % Atypical Lymphs % % Monocytes % (Manual) (2-10) % Eosinophils % (Manual) (0.7-5.8) % Basophils % (Manual) (0.1-1.2) Toxic Granulation Platelet Estimate Plt Morphology Comment Hypochromasia Basophilic Stippling Anisocytosis Macrocytosis Ovalocytes RBC Morph Comment PT (9.7-12.0) SECONDS INR Sodium 136 (136-145) mEq/L Potassium 3.8 (3.5-5.1) mEq/L Chloride 102 (98-107) mEq/L Carbon Dioxide 23 (21-32) mEq/L Anion Gap 14.8 (5-15) BUN 12 (7-18) mg/dL Creatinine 0.9 (0.55-1.02) mg/dL Est Cr Clr Drug Dosing 54.45 mL/min Estimated GFR (MDRD) > 60 (>60) mL/min BUN/Creatinine Ratio 13.3 L (14-18) Glucose 87 (80-115) mg/dL Lactic Acid (0.4-2.0) mmol/L Calcium 8.4 L (8.5-10.1) mg/dL Magnesium 1.5 L (1.8-2.4) mg/dl Total Bilirubin (0.2-1.0) mg/dL AST (15-37) U/L ALT (14-59) U/L Alkaline Phosphatase (46-116) U/L Troponin I (0.00-0.056) ng/mL C-Reactive Protein 1.6 H* (<1.0) mg/dL NT-Pro-B Natriuret Pep (0-125) pg/mL Total Protein (6.4-8.2) g/dl Albumin (3.4-5.0) g/dl Globulin gm/dL Albumin/Globulin Ratio (1-2) Urine Color (Yellow) Urine Appearance (Clear) Urine pH (5.0-8.0) Ur Specific [place] (1.005-1.030) Urine Protein (Negative) Urine Glucose (UA) (Negative) Urine Ketones (Negative) Urine Occult Blood (Negative) Urine Nitrite (Negative) Urine Bilirubin (Negative) Urine Urobilinogen (0.2-1.0) Ur Leukocyte Esterase (Negative) Urine RBC (0-5) /hpf Urine WBC (0-5) /hpf Ur Squamous Epith Cells (0-5) /hpf Urine Bacteria (FEW) /hpf Urine Mucus (FEW) /hpf Result Diagrams: 12/22/18 05:30 12/22/18 05:30 Problem List Initiated/Reviewed/Updated: Yes Orders Last 24hrs: Active Orders 24 hr Category Date Time Status Patient Status [ADT] Routine ADT 12/20/18 22:01 Active Antiembolic Devices [RC] BID Care 12/20/18 22:28 Active Height and Weight [RC] 04 Care 12/20/18 22:26 Active Intake and Output [RC] 04,16 Care 12/20/18 22:26 Active Oxygen Therapy [RC] PRN Care 12/20/18 22:26 Active Peripheral IV Care [RC] Q2HR Care 12/20/18 16:27 Active Up With Assistance [RC] DAILY Care 12/20/18 22:26 Active Up ad Soheila [RC] DAILY Care 12/20/18 22:26 Active VTE/DVT Education [RC] BID Care 12/20/18 22:26 Active Vital Signs [RC] Q4HR Care 12/20/18 22:26 Active Consult to Case Management/Fitness Director [CONS] Cons 12/20/18 22:26 Active Routine Consult to Spiritual Care [CONS] Routine Cons 12/20/18 22:26 Active OT Evaluation and Treatment [CONS] Routine Cons 12/20/18 22:26 Active PT Evaluation and Treatment [CONS] Routine Cons 12/20/18 22:26 Active Regular Diet [DIET] Diet 12/21/18 Breakfast Active Chest 2V [CR] Stat Exams 12/20/18 16:27 Taken BASIC METABOLIC PANEL,BMP [CHEM] AM Lab 12/22/18 05:11 Ordered BASIC METABOLIC PANEL,BMP [CHEM] AM Lab 12/23/18 05:11 Ordered BASIC METABOLIC PANEL,BMP [CHEM] AM Lab 12/24/18 05:11 Ordered BASIC METABOLIC PANEL,BMP [CHEM] AM Lab 12/25/18 05:11 Ordered C-REACTIVE PROTEIN [CHEM] AM Lab 12/22/18 05:11 Ordered C-REACTIVE PROTEIN [CHEM] AM Lab 12/23/18 05:11 Ordered C-REACTIVE PROTEIN [CHEM] AM Lab 12/24/18 05:11 Ordered C-REACTIVE PROTEIN [CHEM] AM Lab 12/25/18 05:11 Ordered CBC WITH AUTO DIFF [HEME] AM Lab 12/21/18 05:27 Results CBC WITH AUTO DIFF [HEME] AM Lab 12/22/18 05:11 Ordered CBC WITH AUTO DIFF [HEME] AM Lab 12/23/18 05:11 Ordered CBC WITH AUTO DIFF [HEME] AM Lab 12/24/18 05:11 Ordered CBC WITH AUTO DIFF [HEME] AM Lab 12/25/18 05:11 Ordered CULTURE BLOOD [BC] Stat Lab 12/20/18 17:12 Received CULTURE BLOOD [BC] Stat Lab 12/20/18 17:41 Received CULTURE SPUTUM + SMEAR [RM] Stat Lab 12/20/18 22:26 Ordered CULTURE URINE [RM] Stat Lab 12/20/18 18:35 Received MAGNESIUM [CHEM] AM Lab 12/22/18 05:11 Ordered MAGNESIUM [CHEM] AM Lab 12/23/18 05:11 Ordered MAGNESIUM [CHEM] AM Lab 12/24/18 05:11 Ordered MAGNESIUM [CHEM] AM Lab 12/25/18 05:11 Ordered MYCOPLASMA PNEUMONIAE, IGG AB [REF] Stat Lab 12/20/18 16:43 Received STREP PNEUMONIAE ANTIGEN [MREF] Stat Lab 12/20/18 18:35 Received VANCOMYCIN TROUGH [CHEM] Timed Lab 12/22/18 11:30 Ordered ALPRAZolam [Xanax] Med 12/20/18 22:24 Active 0.5 mg PO Q8H PRN Acetaminophen [Tylenol] Med 12/20/18 22:26 Active 650 mg PO Q4H PRN Acetaminophen/HYDROcodone [[place] 325-5 MG] Med 12/20/18 22:41 Active 1 tab PO Q6H PRN Albuterol [Proventil HFA] Med 12/20/18 22:24 Active 0 gm INH Q4H PRN Albuterol/Ipratropium [DuoNeb 3.0-0.5 MG/3 ML] Med 12/20/18 22:26 Active 3 ml NEB Q4H PRN Bisacodyl [Dulcolax] Med 12/20/18 22:26 Active 5 mg PO DAILY PRN Docusate Sodium [Colace] Med 12/20/18 22:26 Active 100 mg PO BID PRN Docusate Sodium/Sennosides [Senna Plus] Med 12/20/18 22:26 Active 1 tab PO BID PRN HYDROmorphone [Dilaudid] Med 12/20/18 22:26 Active 0.25 mg IVPUSH Q2H PRN LORazepam [Ativan] Med 12/20/18 22:26 Active 1 mg IV Q6H PRN Magnesium Sulfate/Water [Magnesium Sulfate in Water Med 12/21/18 07:35 Active Premix] 4 gm Premix Bag 1 bag IV ONETIME Meropenem Premix [Meropenem] 50 ml Med 12/21/18 00:00 Active IV Q8H Metoprolol Tartrate [Lopressor] Med 12/20/18 22:30 Active 5 mg IVPUSH Q4H PRN Mometasone/Formoterol [Dulera 200-5 MCG] Med 12/20/18 22:30 Active 2 puff IH BIDRT Ondansetron [Zofran ODT] Med 12/20/18 22:24 Active 8 mg PO Q6HR PRN Ondansetron [Zofran] Med 12/20/18 22:26 Active 4 mg IV Q6H PRN Pantoprazole [ProTONIX IV] Med 12/21/18 09:00 Active 40 mg IV Q12HR Pharmacy to Dose - Vancomycin Med 12/20/18 22:30 Pending 1 dose .XX ASDIRECTED Polyethylene Glycol 3350 [MiraLAX] Med 12/20/18 22:26 Active 17 gm PO DAILY PRN Prochlorperazine [Compazine] Med 12/20/18 22:24 Active 10 mg PO DAILY PRN Promethazine [Phenergan] 6.25 mg Med 12/20/18 22:26 Active Sodium Chloride 0.9% [Normal Saline] 50 ml IV Q6H Simvastatin [Zocor] Med 12/21/18 21:00 Active 40 mg PO BEDTIME Sodium Chloride 0.9% [Normal Saline] 1,000 ml Med 12/20/18 22:30 Active IV ASDIRECTED Sodium Chloride 0.9% [Saline Flush] Med 12/20/18 16:27 Active 10 ml FLUSH ASDIRECTED PRN Temazepam [Restoril] Med 12/20/18 22:26 Active 15 mg PO BEDTIME PRN Vancomycin 1 gm Med 12/21/18 01:00 Active Sodium Chloride 0.9% [Normal Saline] 250 ml IV Q12H hydrALAZINE [Apresoline] Med 12/20/18 22:30 Active 20 mg IVPUSH Q4H PRN rOPINIRole [Requip] Med 12/21/18 04:00 Active 1 mg PO 0400,1000,1600 rOPINIRole [Requip] Med 12/21/18 21:00 Active 3 mg PO BEDTIME traMADol [Ultram] Med 12/20/18 22:24 Active 50 mg PO DAILY PRN Blood Culture x2 Reflex Set [OM.PC] Stat Oth 12/20/18 16:30 Ordered Peripheral IV Insertion Adult [OM.PC] Routine Oth 12/20/18 16:27 Ordered Precautions [COMM] Routine Oth 12/20/18 22:30 Ordered Sequential Compression Device [OM.PC] Per Unit Routine Oth 12/20/18 22:26 Ordered Resuscitation Status Routine Resus Stat 12/20/18 22:26 Ordered Medication Orders Acetaminophen (Tylenol) 650 mg PO Q4H PRN PRN Reason: Pain (Mild 1-3)/fever Hydrocodone Bitart/Acetaminophen ([place] 325-5 Mg) 1 tab PO Q6H PRN PRN Reason: Pain Albuterol (Proventil Hfa) 0 gm INH Q4H PRN PRN Reason: sob Albuterol/Ipratropium (Duoneb 3.0-0.5 Mg/3 Ml) 3 ml NEB Q4H PRN PRN Reason: Shortness Of Breath/wheezing Alprazolam (Xanax) 0.5 mg PO Q8H PRN PRN Reason: Anxiety Bisacodyl (Dulcolax) 5 mg PO DAILY PRN PRN Reason: Constipation Docusate Sodium (Colace) 100 mg PO BID PRN PRN Reason: Constipation Hydralazine HCl (Apresoline) 20 mg IVPUSH Q4H PRN PRN Reason: Hypertension Hydromorphone HCl (Dilaudid) 0.25 mg IVPUSH Q2H PRN PRN Reason: Pain (severe 7-10) Promethazine HCl 6.25 mg/ (Sodium Chloride) 50.25 mls @ 100 mls/hr IV Q6H PRN PRN Reason: Nausea/Vomiting Sodium Chloride (Normal Saline) 1,000 mls @ 100 mls/hr IV ASDIRECTED [facility] Last Infusion: 12/20/18 23:44 Dose: 100 mls/hr Admin: 12/20/18 23:42 Dose: 100 mls/hr Meropenem/Sodium Chloride (Meropenem) 50 mls @ 100 mls/hr IV Q8H [facility] Last Admin: 12/21/18 07:58 Dose: 100 mls/hr Infusion: 12/21/18 00:13 Dose: 100 mls/hr Admin: 12/20/18 23:43 Dose: 100 mls/hr Vancomycin HCl 1 gm/ Sodium (Chloride) 250 mls @ 250 mls/hr IV Q12H [facility] Last Admin: 12/21/18 01:17 Dose: 250 mls/hr Magnesium Sulfate 4 gm/ Premix 50 mls @ 12.5 mls/hr IV ONETIME ONE Stop: 12/21/18 11:34 Lorazepam (Ativan) 1 mg IV Q6H PRN PRN Reason: Anxiety Metoprolol Tartrate (Lopressor) 5 mg IVPUSH Q4H PRN PRN Reason: Tachycardia Mometasone Furoate/Formoterol Fumar (Dulera 200-5 Mcg) 2 puff IH BIDRT [facility] Last Admin: 12/21/18 05:47 Dose: 2 puff Admin: 12/20/18 23:19 Dose: 2 puff Ondansetron HCl (Zofran Odt) 8 mg PO Q6HR PRN PRN Reason: Nausea Ondansetron HCl (Zofran) 4 mg IV Q6H PRN PRN Reason: Nausea/Vomiting Last Admin: 12/21/18 00:40 Dose: 4 mg Pantoprazole Sodium (Protonix Iv) 40 mg IV Q12HR [facility] Polyethylene Glycol (Miralax) 17 gm PO DAILY PRN PRN Reason: Constipation Prochlorperazine Maleate (Compazine) 10 mg PO DAILY PRN PRN Reason: Nausea Ropinirole HCl (Requip) 3 mg PO BEDTIME TERI Ropinirole HCl (Requip) 1 mg PO 0400,1000,1600 [facility] Last Admin: 12/21/18 04:25 Dose: 1 mg Senna/Docusate Sodium (Senna Plus) 1 tab PO BID PRN PRN Reason: Constipation Simvastatin (Zocor) 40 mg PO BEDTIME [facility] Sodium Chloride (Saline Flush) 10 ml FLUSH ASDIRECTED PRN PRN Reason: Keep Vein Open Last Admin: 12/20/18 20:09 Dose: 10 ml Admin: 12/20/18 17:03 Dose: 10 ml Temazepam (Restoril) 15 mg PO BEDTIME PRN PRN Reason: Sleep Last Admin: 12/21/18 00:41 Dose: 15 mg Tramadol HCl (Ultram) 50 mg PO DAILY PRN PRN Reason: Pain Vancomycin HCl (Pharmacy To Dose - Vancomycin) 1 dose .XX ASDIRECTED [facility] Assessment/Plan Comment:: Assessment: Acute: Sepsis - 2/2 CAP - Meets Criteria: Tachycardia and Tachypnea - Leukocytopenia with CRP of 1.4 - Sepsis treatment CAP - Chest CTA: Patchy increased density within the right upper lung - Sputum Culture, Mycoplasma and Strep Pneumoniae Ag - IV Meropenem and Vancomycin for pharmacy to dose - IS/FV as directed with Decongestant/Expectorant - Serial CXR as indicated Leukocytopenia - WBC of 0.75 with CRP of 1.7 - Bands of 0% - Monitor Normocytic Hypochromic Anemia - Hgb of 8.7 - Likely related recent treatment plus underlying malignancy - No hematemesis, rectal bleed or melenic stool - Will monitor Chronic: HLD, Chronic Pain, RLS, Anxiety/Depression, Lung CA S/p Resection and Obesity Class I Plan: Admitted overnight to [facility] Resume Some Home Meds Sepsis work up Routine AM Labs Regular Diet Pharmacy okayed to follow patient additional Requip treatment GI/DVT Prophylaxis PT/OT consult Isolation Prevention SW/CM for d/c planning Code status:full Additional orders as above - Mortality Measure Prognosis:: Good
[2018-12-21] MEDS ORDERED: Pantoprazole 40 MG Vial IV SCH (09:00)
--- NOTE | 2018-12-21 09:40 | CR ---
Chest: Two views of the chest are obtained. Comparison: No previous chest x-ray. Subsequent chest CT performed later on the same day. Previous left pneumonectomy is noted. Right lung shows no definite acute parenchymal change. Right lung markings are mildly increased most likely due to redistribution of blood. Slight parenchymal density is noted within the right upper lung which correlates to an area of presumed scarring within the right upper lung as well as mild area of interstitial change most likely due to pneumonia is seen on subsequent chest CT. Impression: 1. Previous left pneumonectomy. 2. Slight parenchymal density within the right upper lung felt to represent a combination of acute change most likely due to pneumonia and mild scarring. Diagnostic code #3
[2018-12-21] MEDS: Sodium Chloride 0.9% 1,000 ML IV SCH ×2 (10:42→20:32)
[2018-12-21] MEDS ORDERED: Promethazine 25 MG/ML SDV ONE (13:43)
[2018-12-21] MEDS: Meropenem Premix 500 MG in Premix Bag 1 BAG IV SCH ×2 (13:57→20:58)
[2018-12-21] MEDS: Simvastatin 40 MG Tab PO SCH (20:58)
[2018-12-21] MEDS: Pantoprazole 40 MG Tab.CR PO SCH (20:58)
[2018-12-22] MEDS: rOPINIRole 1 MG Tab PO SCH ×9 (01:17→22:10)
[2018-12-22] MEDS: Meropenem Premix 500 MG in Premix Bag 1 BAG IV SCH ×4 (02:39→20:28)
[2018-12-22] MEDS: Formoterol/Mometasone 200-5 MCG 8.8 GM Inhaler IH SCH ×2 (05:21→21:02)
[2018-12-22] MEDS: Sodium Chloride 0.9% 1,000 ML IV SCH ×2 (06:51→19:14)
--- NOTE | 2018-12-22 07:12 | PCM.PN ---
- General Info Date of Service: 12/22/18 Admission Dx/Problem (Free Text): Admission Diagnosis/Problem Admission Diagnosis/Problem Pneumonia Subjective Update: Follow Up Functional Status: Reports: Pain Controlled, Tolerating Diet, Ambulating, Urinating. Denies: New Symptoms - Review of Systems General: Denies: Fever, Weakness, Fatigue, Malaise, Chills HEENT: Reports: No Symptoms Pulmonary: Denies: Shortness of Breath, Pleuritic Chest Pain, Cough, Wheezing Cardiovascular: Denies: Chest Pain, Dyspnea on Exertion, Lightheadedness Gastrointestinal: Denies: Abdominal Pain, Nausea, Vomiting Genitourinary: Reports: No Symptoms Musculoskeletal: Reports: No Symptoms Skin: Reports: No Symptoms Neurological: Denies: Confusion, Difficulty Walking, Weakness, Gait Disturbance Psychiatric: Denies: Confusion, Depression, Anxiety, Agitation, Cravings, Hallucinations, Suicidal Ideation Systems Review Comment:: No overnight or acute issues. She is doing pretty good. Her Hgb is however down to 7.2. No reports of rectal bleeding, hematemesis, or melenic stool. - Patient Data Vitals - Most Recent: Last Vital Signs Temp 37.1 C 12/22/18 04:00 Pulse 86 12/22/18 04:00 Resp 16 12/22/18 04:00 BP 124/51 L 12/22/18 04:00 Pulse Ox 93 L 12/22/18 05:34 Weight - Most Recent: 95.527 kg I&O - Last 24 Hours: Intake & Output 12/21/18 12/22/18 12/22/18 22:59 06:59 14:59 Intake Total 3210 2746 Output Total 500 1500 Balance 2710 1246 Lab Results Last 24 Hours: Laboratory Results - last 24 hr 12/20/18 12/21/18 12/22/18 Range/Units 16:43 05:27 05:30 WBC 0.75 L* 0.76 L* (3.98-10.04) K/mm3 RBC 2.89 L 2.43 L (3.98-5.22) M/mm3 Hgb 8.7 L 7.2 L* (11.2-15.7) gm/dl Hct 27.1 L 23.2 L (34.1-44.9) % MCV 93.8 95.5 H (79.4-94.8) fl MCH 30.1 29.6 (25.6-32.2) pg MCHC 32.1 L 31.0 L (32.2-35.5) g/dl RDW Std Deviation 70.3 H 74.6 H (36.4-46.3) fL Plt Count 139 L 131 L (182-369) K/mm3 MPV 10.3 10.3 (9.4-12.3) fl Neut % (Auto) 30.2 L (34.0-71.1) % Lymph % (Auto) 30.3 (19.3-51.7) % [place] % (Auto) 38.2 H (4.7-12.5) % Eos % (Auto) 0 L (0.7-5.8) Baso % (Auto) 0.0 L (0.1-1.2) % Neut # (Auto) 0.23 L (1.56-6.13) K/mm3 Lymph # (Auto) 0.23 L (1.18-3.74) K/mm3 [place] # (Auto) 0.29 (0.24-0.36) K/mm3 Eos # (Auto) 0.00 L (0.04-0.36) K/mm3 Baso # (Auto) 0.00 L (0.01-0.08) K/mm3 Neutrophils % (Manual) 34 L (40-60) % Band Neutrophils % 0 (0-10) % Lymphocytes % (Manual) 46 H (20-40) % Atypical Lymphs % 0 % Monocytes % (Manual) 18 H (2-10) % Eosinophils % (Manual) 2 (0.7-5.8) % Basophils % (Manual) 0 L (0.1-1.2) Manual Slide Review Abnormal smear Abnormal smear Toxic Granulation Few Platelet Estimate Decreased Plt Morphology Comment See note Hypochromasia Few Basophilic Stippling Occasional Anisocytosis 2+ moder Macrocytosis 1+ slight Ovalocytes 1+ slight Sodium (136-145) mEq/L Potassium (3.5-5.1) mEq/L Chloride (98-107) mEq/L Carbon Dioxide (21-32) mEq/L Anion Gap (5-15) BUN (7-18) mg/dL Creatinine (0.55-1.02) mg/dL Est Cr Clr Drug Dosing mL/min Estimated GFR (MDRD) (>60) mL/min BUN/Creatinine Ratio (14-18) Glucose (80-115) mg/dL Calcium (8.5-10.1) mg/dL Magnesium (1.8-2.4) mg/dl C-Reactive Protein (<1.0) mg/dL 12/22/18 Range/Units 05:30 WBC (3.98-10.04) K/mm3 RBC (3.98-5.22) M/mm3 Hgb (11.2-15.7) gm/dl Hct (34.1-44.9) % MCV (79.4-94.8) fl MCH (25.6-32.2) pg MCHC (32.2-35.5) g/dl RDW Std Deviation (36.4-46.3) fL Plt Count (182-369) K/mm3 MPV (9.4-12.3) fl Neut % (Auto) (34.0-71.1) % Lymph % (Auto) (19.3-51.7) % [place] % (Auto) (4.7-12.5) % Eos % (Auto) (0.7-5.8) Baso % (Auto) (0.1-1.2) % Neut # (Auto) (1.56-6.13) K/mm3 Lymph # (Auto) (1.18-3.74) K/mm3 [place] # (Auto) (0.24-0.36) K/mm3 Eos # (Auto) (0.04-0.36) K/mm3 Baso # (Auto) (0.01-0.08) K/mm3 Neutrophils % (Manual) (40-60) % Band Neutrophils % (0-10) % Lymphocytes % (Manual) (20-40) % Atypical Lymphs % % Monocytes % (Manual) (2-10) % Eosinophils % (Manual) (0.7-5.8) % Basophils % (Manual) (0.1-1.2) Manual Slide Review Toxic Granulation Platelet Estimate Plt Morphology Comment Hypochromasia Basophilic Stippling Anisocytosis Macrocytosis Ovalocytes Sodium 140 (136-145) mEq/L Potassium 3.5 (3.5-5.1) mEq/L Chloride 106 (98-107) mEq/L Carbon Dioxide 24 (21-32) mEq/L Anion Gap 13.5 (5-15) BUN 6 L (7-18) mg/dL Creatinine 0.9 (0.55-1.02) mg/dL Est Cr Clr Drug Dosing 54.75 mL/min Estimated GFR (MDRD) > 60 (>60) mL/min BUN/Creatinine Ratio 6.7 L (14-18) Glucose 94 (80-115) mg/dL Calcium 8.0 L (8.5-10.1) mg/dL Magnesium 1.8 (1.8-2.4) mg/dl C-Reactive Protein 1.5 H* (<1.0) mg/dL Mau Results Last 24 Hours: Microbiology 12/20/18 17:41 Aerobic Blood Culture - Preliminary Blood - Venous NO GROWTH AFTER 1 DAY Anaerobic Blood Culture - Preliminary NO GROWTH AFTER 1 DAY 12/20/18 17:12 Aerobic Blood Culture - Preliminary Blood - Venous - Lab Draw NO GROWTH AFTER 1 DAY Anaerobic Blood Culture - Preliminary NO GROWTH AFTER 1 DAY 12/21/18 08:55 Gram Stain - Final Sputum - Expectorated Med Orders - Current: Current Medications Acetaminophen (Tylenol) 650 mg PO Q4H PRN PRN Reason: Pain (Mild 1-3)/fever Hydrocodone Bitart/Acetaminophen ([place] 325-5 Mg) 1 tab PO Q6H PRN PRN Reason: Pain Albuterol (Proventil Hfa) 0 gm INH Q4H PRN PRN Reason: sob Albuterol/Ipratropium (Duoneb 3.0-0.5 Mg/3 Ml) 3 ml NEB Q4H PRN PRN Reason: Shortness Of Breath/wheezing Alprazolam (Xanax) 0.5 mg PO Q8H PRN PRN Reason: Anxiety Bisacodyl (Dulcolax) 5 mg PO DAILY PRN PRN Reason: Constipation Dexamethasone (Dexamethasone) 4 mg IVPUSH ONETIME ONE Stop: 12/22/18 07:07 Diphenhydramine HCl (Benadryl) 25 mg IV ONETIME ONE Stop: 12/22/18 07:06 Docusate Sodium (Colace) 100 mg PO BID PRN PRN Reason: Constipation Hydralazine HCl (Apresoline) 20 mg IVPUSH Q4H PRN PRN Reason: Hypertension Hydromorphone HCl (Dilaudid) 0.25 mg IVPUSH Q2H PRN PRN Reason: Pain (severe 7-10) Promethazine HCl 6.25 mg/ (Sodium Chloride) 50.25 mls @ 100 mls/hr IV Q6H PRN PRN Reason: Nausea/Vomiting Last Admin: 12/21/18 15:01 Dose: 100 mls/hr Sodium Chloride (Normal Saline) 1,000 mls @ 100 mls/hr IV ASDIRECTED [facility] Last Admin: 12/22/18 06:51 Dose: 100 mls/hr Vancomycin HCl 1 gm/ Sodium (Chloride) 250 mls @ 250 mls/hr IV Q12H [facility] Last Admin: 12/22/18 01:17 Dose: 250 mls/hr Meropenem/Sodium Chloride 500 (mg/ Premix) 50 mls @ 100 mls/hr IV Q6H [facility] Last Admin: 12/22/18 02:39 Dose: 100 mls/hr Lorazepam (Ativan) 1 mg IV Q6H PRN PRN Reason: Anxiety Metoprolol Tartrate (Lopressor) 5 mg IVPUSH Q4H PRN PRN Reason: Tachycardia Mometasone Furoate/Formoterol Fumar (Dulera 200-5 Mcg) 2 puff IH BIDRT [facility] Last Admin: 12/22/18 05:21 Dose: 2 puff Ondansetron HCl (Zofran Odt) 8 mg PO Q6HR PRN PRN Reason: Nausea Ondansetron HCl (Zofran) 4 mg IV Q6H PRN PRN Reason: Nausea/Vomiting Last Admin: 12/21/18 10:06 Dose: 4 mg Pantoprazole Sodium (Protonix) 40 mg PO BID [facility] Last Admin: 12/21/18 20:58 Dose: 40 mg Polyethylene Glycol (Miralax) 17 gm PO DAILY PRN PRN Reason: Constipation Prochlorperazine Maleate (Compazine) 10 mg PO DAILY PRN PRN Reason: Nausea Ropinirole HCl (Requip) 3 mg PO BEDTIME@2200 [facility] Last Admin: 12/21/18 22:09 Dose: 3 mg Ropinirole HCl (Requip) 1 mg PO Q3H [facility] Last Admin: 12/22/18 06:51 Dose: 1 mg Senna/Docusate Sodium (Senna Plus) 1 tab PO BID PRN PRN Reason: Constipation Last Admin: 12/22/18 06:51 Dose: 1 tab Simvastatin (Zocor) 40 mg PO BEDTIME [facility] Last Admin: 12/21/18 20:58 Dose: 40 mg Sodium Chloride (Saline Flush) 10 ml FLUSH ASDIRECTED PRN PRN Reason: Keep Vein Open Last Admin: 12/20/18 20:09 Dose: 10 ml Temazepam (Restoril) 15 mg PO BEDTIME PRN PRN Reason: Sleep Last Admin: 12/21/18 00:41 Dose: 15 mg Tramadol HCl (Ultram) 50 mg PO DAILY PRN PRN Reason: Pain Vancomycin HCl (Pharmacy To Dose - Vancomycin) 1 dose .XX ASDIRECTED PRN PRN Reason: RX TO DOSE VANCO Discontinued Medications Hydrocodone Bitart/Acetaminophen ([place] 325-5 Mg) 1 tab PO ONETIME ONE Stop: 12/20/18 21:30 Last Admin: 12/20/18 21:37 Dose: 1 tab Albuterol (Proventil Neb Soln) 2.5 mg NEB ONETIME ONE Stop: 12/20/18 16:28 Last Admin: 12/20/18 16:46 Dose: 2.5 mg Hydromorphone HCl (Dilaudid) 0.25 mg IVPUSH ONETIME ONE Stop: 12/20/18 16:28 Last Admin: 12/20/18 17:02 Dose: 0.25 mg Sodium Chloride (Normal Saline) 1,000 mls @ 250 mls/hr IV ONETIME ONE Stop: 12/20/18 20:26 Last Admin: 12/20/18 17:02 Dose: 250 mls/hr Sodium Chloride (Normal Saline) 100 mls @ 4 mls/sec IV ONETIME ONE Stop: 12/20/18 19:28 Last Admin: 12/20/18 20:09 Dose: 4 mls/sec Levofloxacin/Dextrose 750 mg/ (Premix) 150 mls @ 100 mls/hr IV ONETIME ONE Stop: 12/20/18 21:56 Last Admin: 12/20/18 21:02 Dose: 100 mls/hr Vancomycin HCl 500 mg/ Sodium (Chloride) 250 mls @ 166.667 mls/hr IV Q12H [facility] Last Admin: 12/20/18 23:08 Dose: Not Given Vancomycin HCl 1 gm/ Sodium (Chloride) 250 mls @ 250 mls/hr IV Q12H [facility] Last Admin: 12/21/18 00:43 Dose: Not Given Meropenem/Sodium Chloride (Meropenem) 50 mls @ 100 mls/hr IV Q6H [facility] Meropenem/Sodium Chloride (Meropenem) 50 mls @ 100 mls/hr IV Q8H [facility] Last Admin: 12/21/18 07:58 Dose: 100 mls/hr Magnesium Sulfate 4 gm/ Premix 50 mls @ 12.5 mls/hr IV ONETIME ONE Stop: 12/21/18 11:34 Last Admin: 12/21/18 08:55 Dose: 12.5 mls/hr Iopamidol (Isovue-370 (76%)) 100 ml IVPUSH ONETIME ONE Stop: 12/20/18 19:28 Last Admin: 12/20/18 20:09 Dose: 100 ml Pantoprazole Sodium (Protonix Iv) 40 mg IV Q12HR [facility] Last Admin: 12/21/18 08:55 Dose: 40 mg Promethazine HCl (Phenergan) Confirm Administered Dose 25 mg .ROUTE .STK-MED ONE Stop: 12/21/18 13:44 Last Admin: 12/21/18 17:19 Dose: Not Given Ropinirole HCl (Requip) 1 mg PO ONETIME ONE Stop: 12/20/18 19:05 Last Admin: 12/20/18 19:15 Dose: 1 mg Ropinirole HCl (Requip) 1 mg PO ONETIME ONE Stop: 12/21/18 21:31 Last Admin: 12/20/18 21:37 Dose: 1 mg Ropinirole HCl (Requip) 1 mg PO 0400,1000,1600 [facility] Last Admin: 12/21/18 19:02 Dose: 1 mg Ropinirole HCl (Requip) 2 mg PO ONETIME ONE Stop: 12/21/18 00:31 Last Admin: 12/21/18 00:40 Dose: 2 mg - Exam General: Alert, Oriented, Cooperative, No Acute Distress HEENT: Pupils Equal, Pupils Reactive, EOMI, Mucous Membr. Moist/[place] Neck: Supple Lungs: Normal Respiratory Effort, Other (adventitious sounds) Cardiovascular: Regular Rate, Regular Rhythm GI/Abdominal Exam: Normal Bowel Sounds, Soft, Non-Tender, No Organomegaly, No Distention, No Abnormal Bruit (Female) Exam: Deferred Back Exam: Normal Inspection, Decreased Range of Motion Extremities: Normal Inspection, Normal Range of Motion, Non-Tender, No Pedal Edema, Normal Capillary Refill Peripheral Pulses: 2+: Posterior Tibial (L), Posterior Tibial (R), Dorsalis Pedis (L), Dorsalis Pedis (R) Skin: Warm, Dry, Intact Neurological: No New Focal Deficit Psy/Mental Status: Alert, Normal Affect, Normal Mood - Problem List Review Problem List Initiated/Reviewed/Updated: Yes - My Orders Last 24 Hours: My Active Orders 12/21/18 14:00 Meropenem Premix [Meropenem] 500 mg Premix Bag 1 bag IV Q6H 12/21/18 21:00 Pantoprazole [ProTONIX] 40 mg PO BID Simvastatin [Zocor] 40 mg PO BEDTIME 12/21/18 22:00 rOPINIRole [Requip] 3 mg PO BEDTIME@2200 12/21/18 Lunch Regular Diet [DIET] 12/22/18 01:00 rOPINIRole [Requip] 1 mg PO Q3H 12/22/18 05:30 TYPE AND SCREEN [BBK] Routine 12/22/18 07:05 diphenhydrAMINE [Benadryl] 25 mg IV ONETIME ONE Transfuse PRBC [Transfuse Red Blood Cells] [COMM] Urgent Transfuse Red Blood Cells [COMM] Routine 12/22/18 07:06 dexAMETHasone [Dexamethasone] 4 mg IVPUSH ONETIME ONE 12/22/18 07:11 FE, TIBC, TRANSFERRIN, FE SAT [CHEM] Urgent 12/23/18 05:11 BASIC METABOLIC PANEL,BMP [CHEM] AM C-REACTIVE PROTEIN [CHEM] AM CBC WITH AUTO DIFF [HEME] AM MAGNESIUM [CHEM] AM 12/24/18 05:11 BASIC METABOLIC PANEL,BMP [CHEM] AM C-REACTIVE PROTEIN [CHEM] AM CBC WITH AUTO DIFF [HEME] AM MAGNESIUM [CHEM] AM 12/25/18 05:11 BASIC METABOLIC PANEL,BMP [CHEM] AM C-REACTIVE PROTEIN [CHEM] AM CBC WITH AUTO DIFF [HEME] AM MAGNESIUM [CHEM] AM - Plan Plan:: Assessment: Acute: Sepsis, Improving - 2/2 CAP - Meets Criteria: Tachycardia and Tachypnea - Leukocytopenia with CRP of 1.4 - Sepsis treatment CAP - Chest CTA: Patchy increased density within the right upper lung - Sputum Culture-preliminary - Strep Pneumoniae Ag-negative - Continue IV Meropenem and Vancomycin for pharmacy to dose - Encourage to use IS/FV as directed with Decongestant/Expectorant - CXR in AM Leukocytopenia, Unchanged - WBC of 0.75 with CRP of 1.7-->1.5 - Bands of 0% - Monitor Normocytic Hypochromic Anemia - Hgb of 8.7-->7.2 - Likely related recent treatment plus underlying malignancy - No hematemesis, rectal bleed or melenic stool - Iron supplement w/ Vit C BID - Offered 1 unit of PRBC for transfusion after going over risks and benefits Chronic: HLD, Chronic Pain, RLS, Anxiety/Depression, Lung CA S/p Resection and Obesity Class I Plan: She is clinically stable Blood Culture negative Routine AM Labs Regular Diet GI/DVT Prophylaxis PT/OT to assess and treat Isolation Prevention SW/CM for d/c planning Code status:full Additional orders as above Possible discharge in 2 days
[2018-12-22] MEDS ORDERED: diphenhydrAMINE 50 MG/ML SDV IV ONE (07:15)
[2018-12-22] MEDS ORDERED: Dexamethasone 4 MG/ML SDV IVPUSH ONE (07:15)
[2018-12-22] MEDS: Pantoprazole 40 MG Tab.CR PO SCH ×2 (08:11→20:33)
[2018-12-22] MEDS ORDERED: Sodium Chloride 0.9% 250 ML IV SCH (09:15)
[2018-12-22] MEDS: Bisacodyl 5 MG Tab PO PRN (16:12)
[2018-12-22] MEDS: Simvastatin 40 MG Tab PO SCH (20:33)
[2018-12-22] MEDS: Ascorbic Acid 500 MG Tab PO SCH (22:12)
[2018-12-22] MEDS: Iron Polysaccharides Complex 150 MG Cap PO SCH (22:12)
[2018-12-23] MEDS: rOPINIRole 1 MG Tab PO SCH ×9 (01:08→21:28)
[2018-12-23] MEDS: Meropenem Premix 500 MG in Premix Bag 1 BAG IV SCH ×4 (01:08→21:15)
[2018-12-23] MEDS: Sodium Chloride 0.9% 1,000 ML IV SCH (05:56)
[2018-12-23] MEDS: Formoterol/Mometasone 200-5 MCG 8.8 GM Inhaler IH SCH ×2 (07:05→20:41)
--- NOTE | 2018-12-23 07:22 | PCM.PN ---
- General Info Date of Service: 12/23/18 Admission Dx/Problem (Free Text): Admission Diagnosis/Problem Admission Diagnosis/Problem Pneumonia Subjective Update: Follow Up Functional Status: Reports: Pain Controlled, Tolerating Diet, Ambulating, Urinating. Denies: New Symptoms - Review of Systems General: Denies: Fever, Chills HEENT: Reports: No Symptoms Pulmonary: Denies: Shortness of Breath Cardiovascular: Denies: Chest Pain, Dyspnea on Exertion, Lightheadedness Gastrointestinal: Denies: Abdominal Pain, Nausea, Vomiting Genitourinary: Reports: No Symptoms Musculoskeletal: Reports: No Symptoms Skin: Denies: Cyanosis, Pallor, Diaphoresis, Bruising, Other Neurological: Denies: Confusion, Weakness, Gait Disturbance Psychiatric: Denies: Depression, Mood Lability, Anxiety, Agitation, Hallucinations Systems Review Comment:: No overnight issues. She is doing relatively well. - Patient Data Vitals - Most Recent: Last Vital Signs Temp 36.7 C 12/23/18 05:56 Pulse 69 12/23/18 05:56 Resp 18 12/23/18 05:56 BP 98/76 12/23/18 05:56 Pulse Ox 98 12/23/18 05:56 Weight - Most Recent: 95.527 kg I&O - Last 24 Hours: Intake & Output 12/22/18 12/23/18 12/23/18 22:59 06:59 14:59 Intake Total 1630 Balance 1630 Lab Results Last 24 Hours: Laboratory Results - last 24 hr 12/22/18 12/22/18 12/22/18 Range/Units 05:30 05:30 11:37 WBC (3.98-10.04) K/mm3 RBC (3.98-5.22) M/mm3 Hgb (11.2-15.7) gm/dl Hct (34.1-44.9) % MCV (79.4-94.8) fl MCH (25.6-32.2) pg MCHC (32.2-35.5) g/dl RDW Std Deviation (36.4-46.3) fL Plt Count (182-369) K/mm3 MPV (9.4-12.3) fl Neut % (Auto) (34.0-71.1) % Lymph % (Auto) (19.3-51.7) % [place] % (Auto) (4.7-12.5) % Eos % (Auto) (0.7-5.8) Baso % (Auto) (0.1-1.2) % Neut # (Auto) (1.56-6.13) K/mm3 Lymph # (Auto) (1.18-3.74) K/mm3 [place] # (Auto) (0.24-0.36) K/mm3 Eos # (Auto) (0.04-0.36) K/mm3 Baso # (Auto) (0.01-0.08) K/mm3 Iron 37 L (50-170) ug/dL TIBC 219 (100-400) ug/dL % Saturation 17 L (20-55) % Transferrin 175 L (202-364) mg/dL Vancomycin Trough 13.0 (10.0-20.0) Blood Type O POSITIVE Gel Antibody Screen Negative Crossmatch See Detail 12/23/18 Range/Units 05:40 WBC 0.95 L* (3.98-10.04) K/mm3 RBC 2.63 L (3.98-5.22) M/mm3 Hgb 7.9 L (11.2-15.7) gm/dl Hct 24.6 L (34.1-44.9) % MCV 93.5 (79.4-94.8) fl MCH 30.0 (25.6-32.2) pg MCHC 32.1 L (32.2-35.5) g/dl RDW Std Deviation 67.7 H (36.4-46.3) fL Plt Count 129 L (182-369) K/mm3 MPV 10.0 (9.4-12.3) fl Neut % (Auto) 28.4 L (34.0-71.1) % Lymph % (Auto) 31.6 (19.3-51.7) % [place] % (Auto) 38.9 H (4.7-12.5) % Eos % (Auto) 0 L (0.7-5.8) Baso % (Auto) 0.0 L (0.1-1.2) % Neut # (Auto) 0.27 L (1.56-6.13) K/mm3 Lymph # (Auto) 0.30 L (1.18-3.74) K/mm3 [place] # (Auto) 0.37 H (0.24-0.36) K/mm3 Eos # (Auto) 0.00 L (0.04-0.36) K/mm3 Baso # (Auto) 0.00 L (0.01-0.08) K/mm3 Iron (50-170) ug/dL TIBC (100-400) ug/dL % Saturation (20-55) % Transferrin (202-364) mg/dL Vancomycin Trough (10.0-20.0) Blood Type Gel Antibody Screen Crossmatch Mau Results Last 24 Hours: Microbiology 12/20/18 17:41 Aerobic Blood Culture - Preliminary Blood - Venous NO GROWTH AFTER 2 DAYS Anaerobic Blood Culture - Preliminary NO GROWTH AFTER 2 DAYS 12/20/18 17:12 Aerobic Blood Culture - Preliminary Blood - Venous - Lab Draw NO GROWTH AFTER 2 DAYS Anaerobic Blood Culture - Preliminary NO GROWTH AFTER 2 DAYS 12/20/18 18:35 Urine Culture - Final Urine, Clean Catch MIXED GABRIELA SUGGESTIVE OF CONTAMINATION. 12/21/18 08:55 Gram Stain - Final Sputum - Expectorated Sputum Culture - Preliminary 12/20/18 18:35 Streptococcus pneumoniae Antigen (M - Final Urine Med Orders - Current: Current Medications Acetaminophen (Tylenol) 650 mg PO Q4H PRN PRN Reason: Pain (Mild 1-3)/fever Hydrocodone Bitart/Acetaminophen ([place] 325-5 Mg) 1 tab PO Q6H PRN PRN Reason: Pain Albuterol (Proventil Hfa) 0 gm INH Q4H PRN PRN Reason: sob Albuterol/Ipratropium (Duoneb 3.0-0.5 Mg/3 Ml) 3 ml NEB Q4H PRN PRN Reason: Shortness Of Breath/wheezing Alprazolam (Xanax) 0.5 mg PO Q8H PRN PRN Reason: Anxiety Ascorbic Acid (Vitamin C) 500 mg PO BID TERI Last Admin: 12/22/18 22:12 Dose: 500 mg Bisacodyl (Dulcolax) 5 mg PO DAILY PRN PRN Reason: Constipation Last Admin: 12/22/18 16:12 Dose: 5 mg Docusate Sodium (Colace) 100 mg PO BID PRN PRN Reason: Constipation Hydralazine HCl (Apresoline) 20 mg IVPUSH Q4H PRN PRN Reason: Hypertension Hydromorphone HCl (Dilaudid) 0.25 mg IVPUSH Q2H PRN PRN Reason: Pain (severe 7-10) Promethazine HCl 6.25 mg/ (Sodium Chloride) 50.25 mls @ 100 mls/hr IV Q6H PRN PRN Reason: Nausea/Vomiting Last Admin: 12/21/18 15:01 Dose: 100 mls/hr Sodium Chloride (Normal Saline) 1,000 mls @ 100 mls/hr IV ASDIRECTED [facility] Last Admin: 12/23/18 05:56 Dose: 100 mls/hr Vancomycin HCl 1 gm/ Sodium (Chloride) 250 mls @ 250 mls/hr IV Q12H [facility] Last Admin: 12/23/18 01:08 Dose: 250 mls/hr Meropenem/Sodium Chloride 500 (mg/ Premix) 50 mls @ 100 mls/hr IV Q6H [facility] Last Admin: 12/23/18 01:08 Dose: 100 mls/hr Sodium Chloride (Normal Saline) 250 mls @ 100 mls/hr IV ASDIRECTED [facility] Lorazepam (Ativan) 1 mg IV Q6H PRN PRN Reason: Anxiety Metoprolol Tartrate (Lopressor) 5 mg IVPUSH Q4H PRN PRN Reason: Tachycardia Mometasone Furoate/Formoterol Fumar (Dulera 200-5 Mcg) 2 puff IH BIDRT [facility] Last Admin: 12/23/18 07:05 Dose: 2 puff Ondansetron HCl (Zofran Odt) 8 mg PO Q6HR PRN PRN Reason: Nausea Ondansetron HCl (Zofran) 4 mg IV Q6H PRN PRN Reason: Nausea/Vomiting Last Admin: 12/21/18 10:06 Dose: 4 mg Pantoprazole Sodium (Protonix) 40 mg PO BID [facility] Last Admin: 12/22/18 20:33 Dose: 40 mg Polyethylene Glycol (Miralax) 17 gm PO DAILY PRN PRN Reason: Constipation Last Admin: 12/23/18 07:03 Dose: 17 gm Polysaccharide Iron Complex (Ferrex 150) 150 mg PO DAILY [facility] Last Admin: 12/22/18 22:12 Dose: 150 mg Prochlorperazine Maleate (Compazine) 10 mg PO DAILY PRN PRN Reason: Nausea Ropinirole HCl (Requip) 3 mg PO BEDTIME@2200 TERI Last Admin: 12/22/18 22:10 Dose: 3 mg Ropinirole HCl (Requip) 1 mg PO Q3H TERI Last Admin: 12/23/18 07:03 Dose: 1 mg Senna/Docusate Sodium (Senna Plus) 1 tab PO BID PRN PRN Reason: Constipation Last Admin: 12/22/18 06:51 Dose: 1 tab Simvastatin (Zocor) 40 mg PO BEDTIME TERI Last Admin: 12/22/18 20:33 Dose: 40 mg Sodium Chloride (Saline Flush) 10 ml FLUSH ASDIRECTED PRN PRN Reason: Keep Vein Open Last Admin: 12/20/18 20:09 Dose: 10 ml Temazepam (Restoril) 15 mg PO BEDTIME PRN PRN Reason: Sleep Last Admin: 12/21/18 00:41 Dose: 15 mg Tramadol HCl (Ultram) 50 mg PO DAILY PRN PRN Reason: Pain Vancomycin HCl (Pharmacy To Dose - Vancomycin) 1 dose .XX ASDIRECTED PRN PRN Reason: RX TO DOSE VANCO Discontinued Medications Hydrocodone Bitart/Acetaminophen ([place] 325-5 Mg) 1 tab PO ONETIME ONE Stop: 12/20/18 21:30 Last Admin: 12/20/18 21:37 Dose: 1 tab Albuterol (Proventil Neb Soln) 2.5 mg NEB ONETIME ONE Stop: 12/20/18 16:28 Last Admin: 12/20/18 16:46 Dose: 2.5 mg Dexamethasone (Dexamethasone) 4 mg IVPUSH ONETIME ONE Stop: 12/22/18 07:16 Last Admin: 12/22/18 07:59 Dose: 4 mg Diphenhydramine HCl (Benadryl) 25 mg IV ONETIME ONE Stop: 12/22/18 07:16 Last Admin: 12/22/18 07:56 Dose: 25 mg Hydromorphone HCl (Dilaudid) 0.25 mg IVPUSH ONETIME ONE Stop: 12/20/18 16:28 Last Admin: 12/20/18 17:02 Dose: 0.25 mg Sodium Chloride (Normal Saline) 1,000 mls @ 250 mls/hr IV ONETIME ONE Stop: 12/20/18 20:26 Last Admin: 12/20/18 17:02 Dose: 250 mls/hr Sodium Chloride (Normal Saline) 100 mls @ 4 mls/sec IV ONETIME ONE Stop: 12/20/18 19:28 Last Admin: 12/20/18 20:09 Dose: 4 mls/sec Levofloxacin/Dextrose 750 mg/ (Premix) 150 mls @ 100 mls/hr IV ONETIME ONE Stop: 12/20/18 21:56 Last Admin: 12/20/18 21:02 Dose: 100 mls/hr Vancomycin HCl 500 mg/ Sodium (Chloride) 250 mls @ 166.667 mls/hr IV Q12H [facility] Last Admin: 12/20/18 23:08 Dose: Not Given Vancomycin HCl 1 gm/ Sodium (Chloride) 250 mls @ 250 mls/hr IV Q12H [facility] Last Admin: 12/21/18 00:43 Dose: Not Given Meropenem/Sodium Chloride (Meropenem) 50 mls @ 100 mls/hr IV Q6H TERI Meropenem/Sodium Chloride (Meropenem) 50 mls @ 100 mls/hr IV Q8H [facility] Last Admin: 12/21/18 07:58 Dose: 100 mls/hr Magnesium Sulfate 4 gm/ Premix 50 mls @ 12.5 mls/hr IV ONETIME ONE Stop: 12/21/18 11:34 Last Admin: 12/21/18 08:55 Dose: 12.5 mls/hr Iopamidol (Isovue-370 (76%)) 100 ml IVPUSH ONETIME ONE Stop: 12/20/18 19:28 Last Admin: 12/20/18 20:09 Dose: 100 ml Pantoprazole Sodium (Protonix Iv) 40 mg IV Q12HR [facility] Last Admin: 12/21/18 08:55 Dose: 40 mg Promethazine HCl (Phenergan) Confirm Administered Dose 25 mg .ROUTE .STK-MED ONE Stop: 12/21/18 13:44 Last Admin: 12/21/18 17:19 Dose: Not Given Ropinirole HCl (Requip) 1 mg PO ONETIME ONE Stop: 12/20/18 19:05 Last Admin: 12/20/18 19:15 Dose: 1 mg Ropinirole HCl (Requip) 1 mg PO ONETIME ONE Stop: 12/21/18 21:31 Last Admin: 12/20/18 21:37 Dose: 1 mg Ropinirole HCl (Requip) 1 mg PO 0400,1000,1600 TERI Last Admin: 12/21/18 19:02 Dose: 1 mg Ropinirole HCl (Requip) 2 mg PO ONETIME ONE Stop: 12/21/18 00:31 Last Admin: 12/21/18 00:40 Dose: 2 mg - Exam General: Alert, Oriented, Cooperative, No Acute Distress HEENT: Pupils Equal, Pupils Reactive, EOMI, Mucous Membr. Moist/[place] Neck: Supple Lungs: Clear to Auscultation, Normal Respiratory Effort Cardiovascular: Regular Rate, Regular Rhythm GI/Abdominal Exam: Normal Bowel Sounds, Soft, Non-Tender, No Organomegaly, No Distention, No Abnormal Bruit (Female) Exam: Deferred Back Exam: Normal Inspection, Decreased Range of Motion Extremities: Normal Inspection, Normal Range of Motion, Non-Tender, No Pedal Edema, Normal Capillary Refill Peripheral Pulses: 2+: Posterior Tibial (L), Posterior Tibial (R), Dorsalis Pedis (L), Dorsalis Pedis (R) Skin: Warm, Dry, Intact Neurological: No New Focal Deficit, Normal Gait Psy/Mental Status: Alert, Normal Affect, Normal Mood - Problem List Review Problem List Initiated/Reviewed/Updated: Yes - My Orders Last 24 Hours: My Active Orders 12/22/18 07:05 Transfuse PRBC [Transfuse Red Blood Cells] [COMM] Urgent Transfuse Red Blood Cells [COMM] Routine 12/22/18 09:15 Sodium Chloride 0.9% [Normal Saline] 250 ml IV ASDIRECTED 12/22/18 21:00 Ascorbic Acid [Vitamin C] 500 mg PO BID Iron Polysaccharides Complex [Ferrex 150] 150 mg PO DAILY 12/23/18 05:40 BASIC METABOLIC PANEL,BMP [CHEM] AM C-REACTIVE PROTEIN [CHEM] AM CBC WITH AUTO DIFF [HEME] AM MAGNESIUM [CHEM] AM 12/23/18 07:00 Chest 2V [CR] Routine 12/24/18 05:11 BASIC METABOLIC PANEL,BMP [CHEM] AM C-REACTIVE PROTEIN [CHEM] AM CBC WITH AUTO DIFF [HEME] AM MAGNESIUM [CHEM] AM 12/25/18 05:11 BASIC METABOLIC PANEL,BMP [CHEM] AM C-REACTIVE PROTEIN [CHEM] AM CBC WITH AUTO DIFF [HEME] AM MAGNESIUM [CHEM] AM - Plan Plan:: Assessment: Acute: Status Post Sepsis - 2/2 CAP - Meets Criteria: Tachycardia and Tachypnea - Leukocytopenia with CRP of 1.4-->1.5 - Sepsis treatment CAP - Chest CTA: Patchy increased density within the right upper lung - Sputum Culture-normal gabriela - Strep Pneumoniae Ag-negative - Continue IV Meropenem and discontinue Vancomycin for pharmacy to dose - Encourage to use IS/FV as directed with Decongestant/Expectorant - CXR report this AM read as nothing acute is appreciated Leukocytopenia, Unchanged - WBC of 0.75-->0.95 with CRP of 1.7-->1.5-->same - Bands of 0% - Monitor Normocytic Hypochromic Anemia S/p 1 unit of PRBC transfusion - Hgb of 8.7-->7.2--> 7.9 - Likely related recent treatment plus underlying malignancy - No hematemesis, rectal bleed or melenic stool - Iron supplement w/ Vit C BID - Offered 1 unit of PRBC for transfusion after going over risks and benefits Chronic: HLD, Chronic Pain, RLS, Anxiety/Depression, Lung CA S/p Resection and Obesity Class I Plan: She remains clinically stable Routine AM Labs Regular Diet GI/DVT Prophylaxis PT/OT to assess and treat Isolation Prevention SW/CM for d/c planning Code status:full Additional orders as above Possible discharge in AM
[2018-12-23] MEDS: Ascorbic Acid 500 MG Tab PO SCH ×2 (08:38→21:23)
[2018-12-23] MEDS: Iron Polysaccharides Complex 150 MG Cap PO SCH (08:38)
[2018-12-23] MEDS: Bisacodyl 5 MG Tab PO PRN (08:38)
[2018-12-23] MEDS: Pantoprazole 40 MG Tab.CR PO SCH ×2 (08:38→21:23)
--- NOTE | 2018-12-23 10:19 | CR ---
Chest: Two views of the chest were obtained. Comparison: Previous chest x-ray of 12/20/18. Previous left-sided pneumonectomy is seen. Slight parenchymal density is noted within the right upper chest which remains stable and most likely due to an area of scarring. No definite acute parenchymal change seen within the right lung. Stable anterior wedge deformity within the midthoracic spine is seen. Degenerative spurring is noted within the spine. Impression: 1. Stable chest x-ray as noted above. Nothing acute is appreciated. Diagnostic code #2
[2018-12-23] MEDS ORDERED: Magnesium Sulfate/Water 2 GM in Premix Bag 1 BAG IV ONE (10:24)
[2018-12-23] MEDS ORDERED: Potassium Chloride 20 MEQ Tab.ER PO ONE (10:24)
[2018-12-23] MEDS: Acetaminophen/HYDROcodone 325-5 MG Tab PO PRN (12:37)
[2018-12-23] MEDS: Simvastatin 40 MG Tab PO SCH (21:24)
[2018-12-24] MEDS: Acetaminophen/HYDROcodone 325-5 MG Tab PO PRN ×2 (01:13→13:42)
[2018-12-24] MEDS: rOPINIRole 1 MG Tab PO SCH ×5 (01:13→12:47)
[2018-12-24] MEDS: Meropenem Premix 500 MG in Premix Bag 1 BAG IV SCH ×3 (01:15→16:28)
[2018-12-24] MEDS: Formoterol/Mometasone 200-5 MCG 8.8 GM Inhaler IH SCH (06:33)
[2018-12-24] MEDS: Ascorbic Acid 500 MG Tab PO SCH (09:55)
[2018-12-24] MEDS: Pantoprazole 40 MG Tab.CR PO SCH (09:56)
[2018-12-24] MEDS: Iron Polysaccharides Complex 150 MG Cap PO SCH (09:56)
--- NOTE | 2018-12-24 12:44 | PCM.DCSUM1 ---
Discharge Summary - Hospital Course Free Text/Narrative:: This is a 68 yo elderly white female with past medical hx/o LD, Chronic Pain, RLS, Anxiety/Depression, Lung CA S/p Resection and Obesity Class I who presented to ED with complaints of worsening right sided chest pain associated with shortness of breath and wet clear cough that started about a week ago. She carries a hx/o Lung caner s/p left lung resection. She completed her chemotherapy about a month and just recently done with her 8 weeks treatment of radiation therapy. She was initially diagnosed with pneumonia by her cancer doctor in [place]. She was put on oral Bactrim but this did not seem to improve her symptoms. Her initial work up in ED showed a CBC remarkable for WBC of 0.75, RBC of 2.89, Hgb of 8.7, Hct of 27.1, MCHC of 32.1, RDW of 70.3, Platelet of 139, Neutrophils of 34%, Lymphocytes of 46% and Monocytes of 18%. Her Chemistry was significant for AST of 12, Alk Phos of 132, and CRP of 1.4. Her UA was not suggestive of UTI. However her Chest CT scan report read as no findings of PE, previous left pneumectomy, and patchy increased density within the right upper lung. Patient was admitted overnight for CAP vs Post Obstructive Pneumonia. Diagnosis: Stroke: No Modified John Scale: No Symptoms at All Modified John Scale Score: 0 - Discharge Data Discharge Date: 12/24/18 Discharge Disposition: Home, Self-Care 01 Condition: Good - Referral to Home Health Primary Care Physician: THOR Chinchilla - Patient Summary/Data Operative Procedure(s) Performed: None Complications: None Consults: Consultations 12/20/18 22:26 Consult to Case Management/Informatics Application Analyst [CONS] Routine Consult to Spiritual Care [CONS] Routine OT Evaluation and Treatment [CONS] Routine PT Evaluation and Treatment [CONS] Routine Labs Pending at D/C: None Planned Operative Procedure(s) after DC: None Hospital Course: Patient was primarily admitted for sepsis from community acquired pneumonia. Her ches CTA showed right upper lobe pneumonia. Her blood and sputum cultures were all negative for significant organismal growth. However she received intravenous antibiotics and she slowly improved on this regimen. Her hospital course was uncomplicated and the rest of her chronic medical illness remained stable during this hospitalization. Once medically stable, she was then released from the facility. She was sent home with additional course of oral antibiotic to take and was advised to follow up with PCP 1 week after discharge. - Patient Instructions Diet: Usual Diet as Tolerated Activity: As Tolerated Driving: Do Not Drive Showering/Bathing: May Shower Notify Provider of: Fever, Increased Pain, Swelling and Redness, Nausea and/or Vomiting Other/Special Instructions: - Please take all new medications as directed. - Resume routine home medications and activity as tolerated. - Use incentive spirometry as directed for 1 week. - Call or follow up with your doctor for any concerns or issues after discharge. - Follow up with your doctor in 1 week. - Come back or seek immediate care should your symptoms persist or get worse - Discharge Plan *PRESCRIPTION DRUG MONITORING PROGRAM REVIEWED*: Not Applicable *COPY OF PRESCRIPTION DRUG MONITORING REPORT IN PATIENT SCAR: Not Applicable Prescriptions/Med Rec: Levofloxacin [Levaquin] 750 mg PO DAILY #3 tablet Nicotine [Nicotine Patch] 21 mg TD DAILY #30 patch Saccharomyces Boulardii [Florastor] 250 mg PO DAILY #3 capsule Home Medications: Home Meds ALPRAZolam [Alprazolam ODT] 0.5 mg PO DAILY PRN 12/20/18 [History] Albuterol Sulfate [Proair Hfa] 2 puff INH Q4H PRN 12/20/18 [History] Fluticasone/Salmeterol [Advair 250-50] 2 puff INH BID 12/20/18 [History] Hydrocodone/Acetaminophen [[place] 5-325 Tablet] 1 - 2 tab PO Q6H PRN 12/20/18 [ History] Ondansetron [Zofran] 8 mg PO TID PRN 12/20/18 [History] Prochlorperazine [Compazine] 10 mg PO TID PRN 12/20/18 [History] Simvastatin [Zocor] 40 mg PO BEDTIME 12/20/18 [History] rOPINIRole [Requip] 1 mg PO TID 12/20/18 [History] rOPINIRole [Requip] 3 mg PO BEDTIME 12/20/18 [History] traMADol [Ultram] 50 mg PO DAILY PRN 12/20/18 [History] Levofloxacin [Levaquin] 750 mg PO DAILY #3 tablet 12/24/18 [Rx] Nicotine [Nicotine Patch] 21 mg TD DAILY #30 patch 12/24/18 [Rx] Saccharomyces Andrési [Florastor] 250 mg PO DAILY #3 capsule 12/24/18 [Rx] Oxygen Therapy Mode: Room Air Patient Handouts: Anemia, What You Need to Know About Electronic Cigarettes, Sepsis, Adult, Neutropenia, Steps to Quit Smoking, Community-Acquired Pneumonia , Adult, Blir-ob-Uahi Referrals: Evelyne Chapman PA-C [Primary Care Provider] - 12/29/18 2:00 pm (Please follow -up with Primary care provider Evelyne MCRAE on ThursdayDecember 29 @ 2 :00 pm. ) - Discharge Summary/Plan Comment DC Time >30 min.: No Discharge Summary/Plan Comment: Discharge Home - General Info Date of Service: 12/24/18 Admission Dx/Problem (Free Text: Admission Diagnosis/Problem Admission Diagnosis/Problem Pneumonia Subjective Update: Follow Up Functional Status: Reports: Pain Controlled, Tolerating Diet - Review of Systems General: Denies: Fever, Weakness, Fatigue, Malaise, Chills HEENT: Reports: No Symptoms Pulmonary: Denies: Shortness of Breath Cardiovascular: Denies: Chest Pain, Dyspnea on Exertion, Lightheadedness Gastrointestinal: Denies: Abdominal Pain, Nausea, Vomiting Genitourinary: Reports: No Symptoms Musculoskeletal: Reports: No Symptoms Skin: Denies: Cyanosis, Mottled, Pallor, Diaphoresis, Bruising Neurological: Denies: Confusion, Difficulty Walking, Weakness, Gait Disturbance Psychiatric: Denies: Depression, Anxiety, Agitation, Hallucinations Systems Review Comment: No overnight or acute issues. She is doing relatively well and has no complaints this AM. - Patient Data Vitals - Most Recent: Last Vital Signs Temp 36.8 C 12/24/18 07:46 Pulse 80 12/24/18 07:46 Resp 16 12/24/18 07:46 BP 126/84 12/24/18 07:46 Pulse Ox 100 12/24/18 07:46 Weight - Most Recent: 95.164 kg I&O - Last 24 hours: Intake & Output 12/23/18 12/24/18 12/24/18 22:59 06:59 14:59 Intake Total 1410 900 Output Total 1000 1650 Balance 410 -750 Lab Results - Last 24 hrs: Laboratory Results - last 24 hr 12/24/18 12/24/18 Range/Units 04:40 04:40 WBC 0.91 L* (3.98-10.04) K/mm3 RBC 2.77 L (3.98-5.22) M/mm3 Hgb 8.6 L (11.2-15.7) gm/dl Hct 26.2 L (34.1-44.9) % MCV 94.6 (79.4-94.8) fl MCH 31.0 (25.6-32.2) pg MCHC 32.8 (32.2-35.5) g/dl RDW Std Deviation 72.8 H (36.4-46.3) fL Plt Count 138 L (182-369) K/mm3 MPV 9.6 (9.4-12.3) fl Neut % (Auto) 25.2 L (34.0-71.1) % Lymph % (Auto) 34.1 (19.3-51.7) % [place] % (Auto) 40.7 H (4.7-12.5) % Eos % (Auto) 0 L (0.7-5.8) Baso % (Auto) 0.0 L (0.1-1.2) % Neut # (Auto) 0.23 L (1.56-6.13) K/mm3 Lymph # (Auto) 0.31 L (1.18-3.74) K/mm3 [place] # (Auto) 0.37 H (0.24-0.36) K/mm3 Eos # (Auto) 0.00 L (0.04-0.36) K/mm3 Baso # (Auto) 0.00 L (0.01-0.08) K/mm3 Manual Slide Review Abnormal smear Sodium 141 (136-145) mEq/L Potassium 3.9 (3.5-5.1) mEq/L Chloride 106 (98-107) mEq/L Carbon Dioxide 26 (21-32) mEq/L Anion Gap 12.9 (5-15) BUN 3 L (7-18) mg/dL Creatinine 0.7 (0.55-1.02) mg/dL Est Cr Clr Drug Dosing 70.39 mL/min Estimated GFR (MDRD) > 60 (>60) mL/min BUN/Creatinine Ratio 4.3 L (14-18) Glucose 87 (80-115) mg/dL Calcium 8.5 (8.5-10.1) mg/dL Magnesium 1.7 L (1.8-2.4) mg/dl C-Reactive Protein 0.9 (<1.0) mg/dL NATHAN Results - Last 24 hrs: Microbiology 12/20/18 17:41 Aerobic Blood Culture - Preliminary Blood - Venous NO GROWTH AFTER 3 DAYS Anaerobic Blood Culture - Preliminary NO GROWTH AFTER 3 DAYS 12/20/18 17:12 Aerobic Blood Culture - Preliminary Blood - Venous - Lab Draw NO GROWTH AFTER 3 DAYS Anaerobic Blood Culture - Preliminary NO GROWTH AFTER 3 DAYS 12/21/18 08:55 Gram Stain - Final Sputum - Expectorated Sputum Culture - Final NORMAL RESPIRATORY ERIK 2 DAYS Med Orders - Current: Current Medications Acetaminophen (Tylenol) 650 mg PO Q4H PRN PRN Reason: Pain (Mild 1-3)/fever Hydrocodone Bitart/Acetaminophen ([place] 325-5 Mg) 1 tab PO Q6H PRN PRN Reason: Pain Last Admin: 12/24/18 01:13 Dose: 1 tab Albuterol (Proventil Hfa) 0 gm INH Q4H PRN PRN Reason: sob Albuterol/Ipratropium (Duoneb 3.0-0.5 Mg/3 Ml) 3 ml NEB Q4H PRN PRN Reason: Shortness Of Breath/wheezing Alprazolam (Xanax) 0.5 mg PO Q8H PRN PRN Reason: Anxiety Ascorbic Acid (Vitamin C) 500 mg PO BID TERI Last Admin: 12/24/18 09:55 Dose: 500 mg Bisacodyl (Dulcolax) 5 mg PO DAILY PRN PRN Reason: Constipation Last Admin: 12/23/18 08:38 Dose: 5 mg Docusate Sodium (Colace) 100 mg PO BID PRN PRN Reason: Constipation Hydralazine HCl (Apresoline) 20 mg IVPUSH Q4H PRN PRN Reason: Hypertension Hydromorphone HCl (Dilaudid) 0.25 mg IVPUSH Q2H PRN PRN Reason: Pain (severe 7-10) Promethazine HCl 6.25 mg/ (Sodium Chloride) 50.25 mls @ 100 mls/hr IV Q6H PRN PRN Reason: Nausea/Vomiting Last Admin: 12/21/18 15:01 Dose: 100 mls/hr Meropenem/Sodium Chloride 500 (mg/ Premix) 50 mls @ 100 mls/hr IV Q6H [facility] Last Admin: 12/24/18 09:55 Dose: 100 mls/hr Magnesium Sulfate/Dextrose 1 (gm/ Premix) 100 mls @ 100 mls/hr IV ONETIME ONE Stop: 12/24/18 13:24 Lorazepam (Ativan) 1 mg IV Q6H PRN PRN Reason: Anxiety Metoprolol Tartrate (Lopressor) 5 mg IVPUSH Q4H PRN PRN Reason: Tachycardia Mometasone Furoate/Formoterol Fumar (Dulera 200-5 Mcg) 2 puff IH BIDRT [facility] Last Admin: 12/24/18 06:33 Dose: 2 puff Ondansetron HCl (Zofran Odt) 8 mg PO Q6HR PRN PRN Reason: Nausea Ondansetron HCl (Zofran) 4 mg IV Q6H PRN PRN Reason: Nausea/Vomiting Last Admin: 12/21/18 10:06 Dose: 4 mg Pantoprazole Sodium (Protonix) 40 mg PO BID [facility] Last Admin: 12/24/18 09:56 Dose: 40 mg Polyethylene Glycol (Miralax) 17 gm PO DAILY PRN PRN Reason: Constipation Last Admin: 12/23/18 07:03 Dose: 17 gm Polysaccharide Iron Complex (Ferrex 150) 150 mg PO DAILY [facility] Last Admin: 12/24/18 09:56 Dose: 150 mg Prochlorperazine Maleate (Compazine) 10 mg PO DAILY PRN PRN Reason: Nausea Ropinirole HCl (Requip) 3 mg PO BEDTIME@2200 [facility] Last Admin: 12/23/18 21:26 Dose: 3 mg Ropinirole HCl (Requip) 1 mg PO Q3H [facility] Last Admin: 12/24/18 09:55 Dose: 1 mg Senna/Docusate Sodium (Senna Plus) 1 tab PO BID PRN PRN Reason: Constipation Last Admin: 12/22/18 06:51 Dose: 1 tab Simvastatin (Zocor) 40 mg PO BEDTIME [facility] Last Admin: 12/23/18 21:24 Dose: 40 mg Sodium Chloride (Saline Flush) 10 ml FLUSH ASDIRECTED PRN PRN Reason: Keep Vein Open Last Admin: 12/20/18 20:09 Dose: 10 ml Temazepam (Restoril) 15 mg PO BEDTIME PRN PRN Reason: Sleep Last Admin: 12/21/18 00:41 Dose: 15 mg Tramadol HCl (Ultram) 50 mg PO DAILY PRN PRN Reason: Pain Discontinued Medications Hydrocodone Bitart/Acetaminophen ([place] 325-5 Mg) 1 tab PO ONETIME ONE Stop: 12/20/18 21:30 Last Admin: 12/20/18 21:37 Dose: 1 tab Albuterol (Proventil Neb Soln) 2.5 mg NEB ONETIME ONE Stop: 12/20/18 16:28 Last Admin: 12/20/18 16:46 Dose: 2.5 mg Dexamethasone (Dexamethasone) 4 mg IVPUSH ONETIME ONE Stop: 12/22/18 07:16 Last Admin: 12/22/18 07:59 Dose: 4 mg Diphenhydramine HCl (Benadryl) 25 mg IV ONETIME ONE Stop: 12/22/18 07:16 Last Admin: 12/22/18 07:56 Dose: 25 mg Hydromorphone HCl (Dilaudid) 0.25 mg IVPUSH ONETIME ONE Stop: 12/20/18 16:28 Last Admin: 12/20/18 17:02 Dose: 0.25 mg Sodium Chloride (Normal Saline) 1,000 mls @ 250 mls/hr IV ONETIME ONE Stop: 12/20/18 20:26 Last Admin: 12/20/18 17:02 Dose: 250 mls/hr Sodium Chloride (Normal Saline) 100 mls @ 4 mls/sec IV ONETIME ONE Stop: 12/20/18 19:28 Last Admin: 12/20/18 20:09 Dose: 4 mls/sec Levofloxacin/Dextrose 750 mg/ (Premix) 150 mls @ 100 mls/hr IV ONETIME ONE Stop: 12/20/18 21:56 Last Admin: 12/20/18 21:02 Dose: 100 mls/hr Vancomycin HCl 500 mg/ Sodium (Chloride) 250 mls @ 166.667 mls/hr IV Q12H [facility] Last Admin: 12/20/18 23:08 Dose: Not Given Sodium Chloride (Normal Saline) 1,000 mls @ 100 mls/hr IV ASDIRECTED [facility] Last Admin: 12/23/18 05:56 Dose: 100 mls/hr Vancomycin HCl 1 gm/ Sodium (Chloride) 250 mls @ 250 mls/hr IV Q12H [facility] Last Admin: 12/21/18 00:43 Dose: Not Given Meropenem/Sodium Chloride (Meropenem) 50 mls @ 100 mls/hr IV Q6H [facility] Meropenem/Sodium Chloride (Meropenem) 50 mls @ 100 mls/hr IV Q8H [facility] Last Admin: 12/21/18 07:58 Dose: 100 mls/hr Vancomycin HCl 1 gm/ Sodium (Chloride) 250 mls @ 250 mls/hr IV Q12H [facility] Last Admin: 12/23/18 01:08 Dose: 250 mls/hr Magnesium Sulfate 4 gm/ Premix 50 mls @ 12.5 mls/hr IV ONETIME ONE Stop: 12/21/18 11:34 Last Admin: 12/21/18 08:55 Dose: 12.5 mls/hr Sodium Chloride (Normal Saline) 250 mls @ 100 mls/hr IV ASDIRECTED [facility] Magnesium Sulfate 2 gm/ Premix 50 mls @ 25 mls/hr IV ONETIME ONE Stop: 12/23/18 12:23 Last Admin: 12/23/18 10:32 Dose: 25 mls/hr Iopamidol (Isovue-370 (76%)) 100 ml IVPUSH ONETIME ONE Stop: 12/20/18 19:28 Last Admin: 12/20/18 20:09 Dose: 100 ml Pantoprazole Sodium (Protonix Iv) 40 mg IV Q12HR [facility] Last Admin: 12/21/18 08:55 Dose: 40 mg Potassium Chloride (Klor-Con M20) 60 meq PO ONETIME ONE Stop: 12/23/18 10:25 Last Admin: 12/23/18 10:32 Dose: 60 meq Promethazine HCl (Phenergan) Confirm Administered Dose 25 mg .ROUTE .STK-MED ONE Stop: 12/21/18 13:44 Last Admin: 12/21/18 17:19 Dose: Not Given Ropinirole HCl (Requip) 1 mg PO ONETIME ONE Stop: 12/20/18 19:05 Last Admin: 12/20/18 19:15 Dose: 1 mg Ropinirole HCl (Requip) 1 mg PO ONETIME ONE Stop: 12/21/18 21:31 Last Admin: 12/20/18 21:37 Dose: 1 mg Ropinirole HCl (Requip) 1 mg PO 0400,1000,1600 [facility] Last Admin: 12/21/18 19:02 Dose: 1 mg Ropinirole HCl (Requip) 2 mg PO ONETIME ONE Stop: 12/21/18 00:31 Last Admin: 12/21/18 00:40 Dose: 2 mg Vancomycin HCl (Pharmacy To Dose - Vancomycin) 1 dose .XX ASDIRECTED PRN PRN Reason: RX TO DOSE VANCO - Exam General: Reports: Alert, Oriented, Cooperative, No Acute Distress HEENT: Reports: Pupils Equal, Pupils Reactive, EOMI, Mucous Membr. Moist/[place] Neck: Reports: Supple Lungs: Reports: Normal Respiratory Effort, Decreased Breath Sounds, Rhonchi Cardiovascular: Reports: Regular Rate, Regular Rhythm GI/Abdominal Exam: Normal Bowel Sounds, Soft, Non-Tender, No Organomegaly, No Distention, No Abnormal Bruit, No Mass (Female) Exam: Deferred Rectal (Female) Exam: Deferred Back Exam: Reports: Normal Inspection, Decreased Range of Motion Extremities: Normal Inspection, Normal Range of Motion, Non-Tender, No Pedal Edema, Normal Capillary Refill Skin: Reports: Warm, Dry, Intact Neurological: Reports: No New Focal Deficit Psy/Mental Status: Reports: Alert, Normal Affect, Normal Mood
== END 2018-12-24 15:10 | disposition home or self-care (01) | DRG 871 ==
LOC: JD.ED 14:32 → JD.MS 22:04
PROVIDERS: ADMIT Internal Medicine; ATTEND Internal Medicine
DX: A41.9 Sepsis, unspecified organism (principal); J18.1 Lobar pneumonia, unspecified organism; G89.29 Other chronic pain; Z90.2 Acquired absence of lung [part of]; Z92.3 Personal history of irradiation; Z92.21 Personal history of antineoplastic chemotherapy; F41.9 Anxiety disorder, unspecified; G25.81 Restless legs syndrome; F32.9 Major depressive disorder, single episode, unspecified; E66.9 Obesity, unspecified; H54.7 Unspecified visual loss; E78.00 Pure hypercholesterolemia, unspecified; Z87.891 Personal history of nicotine dependence; Z85.118 Personal history of other malignant neoplasm of bronchus and lung; Z79.899 Other long term (current) drug therapy; Z68.33 Body mass index [BMI] 33.0-33.9, adult
CPT/HCPCS: 36415; 71046; 71275; 80053; 81001; 83605; 83880; 84484; 85007; 85027; 85610; 86140; 86738; 87040 ×2; 87086; 87899; 93005; 94640; 96361; 96365; 96375; 99285; A9270 ×3; J1170; J1956; J7030; J7040; Q9967; 36430; 80048; 80202; 83540; 83735; 84466; 85025; 86850; 86900; 86901; 86922; 87070; 87205; 94760; 94761; 97116-GP; 97162-GP; 97165-GO; C9113; J1100; J1200; J2185; J2405; J2550; J3370; J3475; J7050; P9016